=== PATIENT | male | born 1980 | race African-American/Black ===

== ENCOUNTER 2017-05-20 13:47 | Emergency (ER) | payer SELFPAY ==
[2017-05-20] MEDS ORDERED: levETIRAcetam 500 MG TAB ONE (14:12)
[2017-05-20] MEDS ORDERED: LORazepam 2 MG/ML VIAL ONE (15:17)
[2017-05-20] MEDS ORDERED: NA CHLORIDE 0.9% 1,000 ML ONE (15:30)
[2017-05-20 15:39] LABS: Absolute Lymphocytes (CBC) 2.1 K/uL (0.7-4.9); Absolute Monocytes 1.2 K/uL (0.1-1.3); Absolute Neutrophil 14.2 K/uL (1.8-8.0); Basophils % 0.5 % (0-1.3); Hematocrit 46.6 % (39.6-49.0); Lymphocytes % 12.2 % (15.3-44.8); MCH 30.9 pg (27.0-35.0); MCV 92.7 fL (80-100); MPV 10.9 fL (7.6-11.3); Monocytes % 7.1 % (3.3-12.3); RBC Red Blood Cell Count 5.03 M/uL (4.33-5.43)
--- NOTE | 2017-05-20 16:24 | RAD REPORT ---
EXAM DESCRIPTION: CT - Head Brain Wo Cont - 05/20/2017 4:17 pm CLINICAL HISTORY: Seizure COMPARISON: January 2017 TECHNIQUE: Computed axial tomography of the head was obtained. IV contrast was not requested. All CT scans are performed using dose optimization technique as appropriate and may include automated exposure control or mA/KV adjustment according to patient size. FINDINGS: An intracranial bleed is not seen . The ventricles are normal in caliber. No extra-axial fluid collection is noted. Fluid within the sinuses/ mastoids is not seen. IMPRESSION: No acute intracranial abnormality is seen. If patient's symptoms persist MRI of the bra in would be recommended.
[2017-05-20 16:59] LABS: Potassium 3.5 mEq/L (3.6-5.0)
[2017-05-20 17:28] LABS: Urine Blood 2+ (NEG); Urine Glucose NEGATIVE (NEG); Urine Protein NEGATIVE (NEG)
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
[2017-05-20 18:46] VITALS: TEMP 98.2
[2017-05-20 18:51] VITALS: BP 124/81; O2SAT 97
== END 2017-05-20 18:42 | disposition home or self-care (01) ==
LOC: ER 13:47
DX: G40.509 Epileptic seizures related to external causes, not intractable, without status epilepticus (principal); Z91.048 Other nonmedicinal substance allergy status
CPT/HCPCS: 36415; 70450; 80048; 81003; 82962; 85025; 96360; 96361; 96372; 99284; J7030

== ENCOUNTER 2017-11-23 11:58 | Emergency (ER) | payer SELFPAY ==
--- NOTE | 2017-11-23 14:08 | RAD REPORT ---
EXAM DESCRIPTION: RAD - Shoulder Left 2 View - 11/23/2017 1:50 pm CLINICAL HISTORY: Shoulder pain, decreased range of motion, no known precipitating injury COMPARISON: None. TECHNIQUE: Internal and external rotation views of the left shoulder were obtained. FINDINGS: There is no fracture or dislocation. AC joint is normal in appearance. No acute or suspici ous findings. IMPRESSION: Negative two-view left shoulder examination.
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
[2017-11-23 14:56] VITALS: TEMP 98.2
[2017-11-23 14:57] VITALS: BP 114/75; O2SAT 99
== END 2017-11-23 14:34 | disposition home or self-care (01) ==
LOC: ER 11:58
DX: S43.402A Unspecified sprain of left shoulder joint, initial encounter (principal); G40.909 Epilepsy, unspecified, not intractable, without status epilepticus; X58.XXXA Exposure to other specified factors, initial encounter; Z91.09 Other allergy status, other than to drugs and biological substances
CPT/HCPCS: 99283

== ENCOUNTER 2017-12-25 10:25 | Emergency (ER) | payer BC, SELFPAY ==
[2017-12-25] MEDS ORDERED: LORazepam 2 MG/ML VIAL ONE ×2 (10:48→10:59)
[2017-12-25 10:55] LABS: Absolute Lymphocytes (CBC) 1.9 K/uL (0.7-4.9); Absolute Monocytes 1.5 K/uL (0.1-1.3); Absolute Neutrophil 11.9 K/uL (1.8-8.0); Basophils % 0.5 % (0-1.3); Eosinophils % 0.2 % (0-4.4); Hematocrit 49.8 % (39.6-49.0); Lymphocytes % 12.6 % (15.3-44.8); MCH 31.3 pg (27.0-35.0); MCV 95.9 fL (80-100); MPV 10.5 fL (7.6-11.3); Monocytes % 9.8 % (3.3-12.3); RBC Red Blood Cell Count 5.19 M/uL (4.33-5.43)
[2017-12-25] MEDS ORDERED: levETIRAcetam 1,000 MG in NA CHLORIDE 0.9% 100 ML IV ONE (11:00)
[2017-12-25 11:11] LABS: Potassium 3.7 mmol/L (3.5-5.1)
[2017-12-25] MEDS ORDERED: FOSPHENYTOIN IVPB ONE (11:15)
[2017-12-25] MEDS ORDERED: NS IVPB ONE (11:15)
[2017-12-25 11:31] LABS: Barbiturates NEGATIVE (NEGATIVE); Benzodiazepines NEGATIVE (NEGATIVE); Cocaine NEGATIVE (NEGATIVE); METHAMPHETAM NEGATIVE (NEGATIVE); Methadone NEGATIVE (NEGATIVE); Opiates NEGATIVE (NEGATIVE); Phencyclidine NEGATIVE (NEGATIVE); THC Cannibis POSITIVE (NEGATIVE)
--- NOTE | 2017-12-25 11:34 | RAD REPORT ---
EXAM DESCRIPTION: CT - Head C Spine Mpr Wo Con - 12/25/2017 11:07 am CLINICAL HISTORY: Seizure with Head and neck injury status post fall. Head and neck pain COMPARISON: None. TECHNIQUE: Computed axial tomography of the head and cervical spine was obtained. Sagittal and coronal reconstruction was performed. All CT scans are performed using dose optimization technique as appropriate and may include automated exposure control or mA/KV adjustment according to patient size. FINDINGS: An intracranial bleed is not seen. The ventricles are normal in caliber. An extra-axial fl uid collection is not noted.Fluid within the visualized sinuses and mastoids is not seen A cervical fracture is not visualized. No dislocation is noted. IMPRESSION: No acute intracranial abnormality is seen. A cervical fracture is not visualized. If the patient continues to have symptoms to suggest intracra nial /spinal cord pathology then MRI would be recommended
[2017-12-25] MEDS ORDERED: NA CHLORIDE 0.9% 1,000 ML ONE (11:35)
[2017-12-25 12:20] LABS: Urine Blood 2+ (NEG); Urine Glucose TRACE (NEG); Urine Protein 1+ (NEG); Urine Specific Gravity 1.025 (1.005-1.030)
[2017-12-25] MEDS ORDERED: IBUPROFEN 400 MG TAB ONE (13:41)
[2017-12-25 13:57] LABS: Potassium 3.9 mmol/L (3.5-5.1)
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
[2017-12-25 15:47] VITALS: TEMP 98.5
[2017-12-25 15:53] VITALS: BP 101/54; O2SAT 100
== END 2017-12-25 14:54 | disposition home or self-care (01) ==
LOC: ER 10:25
DX: G40.802 Other epilepsy, not intractable, without status epilepticus (principal); Z91.048 Other nonmedicinal substance allergy status
CPT/HCPCS: 36415; 70450; 72125; 80048; 80307; 81003; 85025; 96361; 96374; 96375; 99284; J1953; J7030; Q2009

== ENCOUNTER 2018-03-03 12:52 | Emergency (ER) | payer BC ==
--- OUTSIDE RECORDS SUMMARY | 2018-03-03 12:54 | XMS REPORT | Summary of Care ---
:1980 Author Encounter [facility] Waldemar(YUMIKO) [id number] Date(s): 07/27/14 - 07/27/14 [facility] [address] [place] [address] Discharge Disposition: Home Physician Attending: Monica Ortiz MD Physician Admitting: Monica Ortiz MD Physician_Referring: Monica Ortiz MD Vital Signs Most recent to oldest 1 2 3 [Reference Range]: Height 180.34 cm (07/15/14 1:40 PM) Blood Pressure [90-140/60-90 120/57 mmHg 130/65 mmHg 147/66 mmHg mmHg] (07/27/14 1:35 PM) (07/27/14 1:15 PM) *HI* (07/27/14 1:00 PM) Respiratory Rate [14-20 BRMIN] 15 BRMIN 13 BRMIN 13 BRMIN (07/27/14 1:35 PM) *LOW* *LOW* (07/27/14 1:15 PM) (07/27/14 1:00 PM) Peripheral Pulse Rate [60-100 77 bpm 58 bpm bpm] (07/27/14 1:35 PM) *LOW* (07/27/14 7:13 AM) Weight 81.818 kg (07/15/14 1:40 PM) Body Mass Index 25.16 m2 (07/15/14 1:40 PM) Problem List Condition Effective Dates Status Health Status Informant Retinal detachment(Confirmed) Active Allergies, Adverse Reactions, Alerts Substance Reaction Severity Status Food Shellfish Active Medications flumazenil 0.2 mg, 2 mL, Route: IVP, Drug form: INJ, PRN, Dosing Weight 81.818, kg, PRN Benzodiazepine Reversal, Initial dose, Start date: 07/27/14 12:30:00, Stop date : 07/28/14 0:00:00 Notes: (Same as: Romazicon) Start Date: 07/27/14 Stop Date: 07/28/14 Status: Completedhydromorphone 0.5 mg, 0.25 mL, Route: IVP, Drug form: INJ, Q5Min, Dosing Weight 81.818, kg, PRN Pain Score 7-10, Start date: 07/27/14 12:30:00, Duration: 4 doses or times, Stop date: 07/28/14 0:00:00 Notes: Same as: Dilaudid Start Date: 07/27/14 Stop Date: 07/28/14 Status: Completedmeperidine 12.5 mg, 0.5 mL, Route: IVP, Drug form: INJ, Q30Min, Dosing Weight 81.818, kg, PRN Other -See Comment, For shivering, Start date: 07/27/14 12:30:00, Duration: 2 doses or times, Stop date: 07/28/14 0:00:00 Notes: (Same as: Demerol) "Use Precaution in Elderly, Seizure disorders, and Renal impairment" Start Date: 07/27/14 Stop Date: 07/28/14 Status: Completednaloxone 0.04 mg, 0.1 mL, Route: IVP, Drug form: INJ, Q2MIN, Dosing Weight 81.818, kg, PRN Narcotic Reversal,Start date: 07/27/14 12:30:00, Duration: 8 doses or times , Stop date: 07/28/14 0:00:00 Notes: Same as Narcan Start Date: 07/27/14 Stop Date: 07/28/14 Status: Completedondansetron 4 mg, 2 mL, Route: IVP, Drug form: INJ, ONCE, Dosing Weight 81.818, kg, PRN Nausea & Vomiting, Start date: 07/27/14 12:30:00 Notes: (Same as: Zofran) MEDICATION WASTE Product Size: 4 mgProduct Wasted: _0__ mg Start Date: 07/27/14 Stop Date: 07/28/14 Status: DiscontinuedoxyCODONE 5 mg/5 mL oral solution 5 mg, 5 mL, Route: NG, Drug form: LIQ, Q4H, Dosing Weight 81.818, kg, PRN Pain Score 4-6, Start date: 07/27/14 12:30:00, Stop date: 07/28/14 0:00:00 Notes: (Same as: 'Roxicodone) Start Date: 07/27/14 Stop Date: 07/28/14 Status: CompletedoxyCODONE 5 mg/5 mL oral solution 10 mg, 10 mL, Route: NG, Drug form: LIQ, Q4H, Dosing Weight 81.818, kg, PRN Pain Score 7-10, Start date: 07/27/14 12:30:00, Stop date: 07/28/14 0:00:00 Notes: (Same as: 'Roxicodone) Start Date: 07/27/14 Stop Date: 07/28/14 Status: Completedphenylephrine ophthalmic 2.5% solution 1 drp, Route: LEFT EYE, ONCALL, Drug form: SOLN, Start date: 07/27/14 8:00:00, Duration: 1 day, Stopdate: 07/28/14 7:59:00 Start Date: 07/27/14 Stop Date: 07/27/14 Status: Completedpromethazine 6.25 mg, 0.25 mL, Route: IVPB, Drug form: INJ, ONCE, Dosing Weight 81.818, kg, PRN Nausea & Vomiting, Start date: 07/27/14 12:30:00 Notes: Do not give IV push. (Same as: Phenergan) Start Date: 07/27/14 Stop Date: 07/28/14 Status: Discontinuedtropicamide ophthalmic 1 drp, Route: LEFT EYE, ONCALL, Drug form: SOLN, Start date: 07/27/14 8:00:00, Duration: 1 day, Stopdate: 07/28/14 7:59:00 Notes: (Same As: Mydriacyl, Opticyl, Tropicacyl) Start Date: 07/27/14 Stop Date: 07/27/14 Status: Completed Results No data available for this section Immunizations No data available for this section Procedures Procedure Date Related Diagnosis Body Site Eye operation Social History Social History Type Response Smoking Status Former smoker; Type: Cigarettes; Exposure to Tobacco Smoke None ; Cigarette Smoking Last 365 Days No; Reg Smoking Cessation Counseling No1 1quit in 2014 Assessment and Plan Extracted from: Title: Vitreoretinal Surgery operative report Author: Monica Ortiz MD Date: 07/27/14 Patient: Corinne Rees Preoperative diagnosis: 1. retinal detachment with proliferative vitreoretinopathy, left eye Postoperative diagnosis: 1. retinal detachment with proliferative vitreoretinopathy, left eye Procedure: 1. 25 gauge pars plana vitrectomy, silicone oil removal, membrane peel, relaxing retinectomy, endolaser, PFO, air-fluid exchange, silicone oil, surgical peripheral iridotomy, left eye Anesthesia: general Complications: none Blood loss: minimal Surgeon: Monica Ortiz MD Director Of Social Media Marketing: Tri Murillo MD Indications and history: This is a patient who presented s/p open globe repair elsewhere. He underwent CE/IOL and PPV with SO combined. In the post op period the retina was found to be detached and in PVR. Risks, benefits, alte rnatives to surgery were discussed. Very poor visual prognosis was reviewed with the patient. In the pre operative area, the left eye was marked as the correct surgical eye and confirmed with the patient. Informed consent was obtained. Procedure details: the patient was brought to the operating room and placed in supine position. Appropriate cardiopulmonary monitoring was establishd by anesthesia and the patient was sedated and intubated. The eye was prepped and draped in the usual sterile fashion for ophthalmic surgery. A lid speculum was used. A 25g system was used. The inferotemporal trochar was placed 3.5 mm posterior to the limbus a nd the infusion port visualized in the vitreous cavity prior to turning it on. Superotemporal and superonasal trochars were similarly placed. A viscous fluid extractor was used to remove the silicone oi l under direct visualization. The cutter was used to open the posterior capsule. A core vitrectomy was then performed and residual hemorrage and fibrinous membranes were trimmed to the periphery. A max- flight mechanic forcep was used to peel membranes from the nerve to relax the traction. Endocautery was then used to farhan the retina and cauterize vessels, and the cutter was used to make a retinectomy from 4 o'cl ock to 11:30. PFO was then used to flatten the retina. An air-fluid exchange was done using a soft tip cannula. Endolaser was applied along the edge of the retinectomy with 3 rows of barricade and surro unding the horns anteriorly. The cutter was used to make a peripheral iridotomy inferiorly. The eye was filled with 1000cs silicone oil to the level of the posterior capsule. The sclerotomy sites were s utured with 7-0 vicryl and found to be watertight. The conjunctiva was closed with 6-0 plain gut. Subconjunctival ancef and decadron were given. The lid speculum was removed. The eye was patched and catracho elded. The patient was extubated by the anesthesia team and transferred to PACU in stable condition. I performed all critical portion(s) of the case.
--- OUTSIDE RECORDS SUMMARY | 2018-03-03 12:54 | XMS REPORT | Continuity of Care Document ---
:1980 Author Organization Interface Problems Problem Status Onset Classification Date Comments Source Date Reported COMPLEX Active [facility] RETINAL [facility] Retinal Active Problem 07/30/2014 [facility] detachment [facility] DETACHMNT W Active [facility] DEFECT NOS [facility] Medications Medication Details Route Status Patient Ordering Order Source Instructions Provider Date Naloxone 0.04 mg, 0.1 mL, No Longer [facility] Route: IVP, Drug Active 2014 Medical form: INJ, Center Q2MIN, Dosing Weight 81.818, kg, PRN Narcotic Reversal, Start date: 07/27/14 12:30:00, Duration: 8 doses or times, Stop date: 07/28/14 0:00:00Notes: Same as Narcan Hydromorphone 0.5 mg, 0.25 mL, No Longer 07/27[facility] Route: IVP, Drug Active 2014 Medical form: INJ, Center Q5Min, Dosing Weight 81.818, kg, PRN Pain Score 7-10, Start date: 07/27/14 12:30:00, Duration: 4 doses or times, Stop date: 07/28/14 0:00:00Notes: Same as: Dilaudid Ondansetron 4 mg, 2 mL, No Longer 07/27[facility] Route: IVP, Drug Active 2014 Medical form: INJ, ONCE, Center Dosing Weight 81.818, kg, PRN Nausea & Vomiting, Start date: 07/27/14 12:30:00Notes: (Same as: Zofran) MEDICATION WASTE Product Size: 4 mg Product Wasted: _0__ mg Promethazine 6.25 mg, 0.25 No Longer 07/27[facility] mL, Route: IVPB, Active 2014 Medical Drug form: INJ, Center ONCE, Dosing Weight 81.818, kg, PRN Nausea & Vomiting, Start date: 07/27/14 12:30:00Notes: Do not give IV push. (Same as: Phenergan) Meperidine 12.5 mg, 0.5 mL, No Longer [place] Route: IVP, Drug Active 2014 Medical form: INJ, Center Q30Min, Dosing Weight 81.818, kg, PRN Other -See Comment, For shivering, Start date: 07/27/14 12:30:00, Duration: 2 doses or times, Stop date: 07/28/14 0:00:00Notes: (Same as: Demerol) "Use Precaution in Elderly, Seizure disorders, and Renal impairment" Flumazenil 0.2 mg, 2 mL, No Longer [facility] Route: IVP, Drug Active 2014 Medical form: INJ, PRN, Center Dosing Weight 81.818, kg, PRN Benzodiazepine Reversal, Initial dose, Start date: 07/27/14 12:30:00, Stop date: 07/28/14 0:00:00Notes: (Same as: Romazicon) Oxycodone 5 mg, 5 mL, No Longer [facility] Hydrochloride 1 Route: NG, Drug Active 2014 Medical MG/ML Oral form: LIQ, Q4H, Center Solution Dosing Weight 81.818, kg, PRN Pain Score 4-6, Start date: 07/27/14 12:30:00, Stop date: 07/28/14 0:00:00Notes: (Same as: 'Roxicodone) tropicamide 1 drp, Route: Inactive [facility] ophthalmic LEFT EYE, 2014 Medical ONCALL, Drug Center form: SOLN, Start date: 07/27/14 8:00:00, Duration: 1 day, Stop date: 07/28/14 7:59:00Notes: (Same As: Mydriacyl, Opticyl, Tropicacyl) phenylephrine 1 drp, Route: Inactive [facility] ophthalmic 2.5% [facility] EYE, [facility] [place] form: SOLN, Start date: 07/27/14 8:00:00, Duration: 1 day, Stop date: 07/28/14 7:59:00 Allergies, Adverse Reactions, Alerts Substance Category Reaction Severity Reaction Status Date Comments Source type Reported Food Assertion Drug Active [facility] Shellfish allergy [facility] Immunizations Immunization Date Given Site Status Last Updated Comments Source Results Order Results Value Reference Date Interpretation Comments Source Name Range Vital Signs Vital Sign Value Date Comments Source Systolic (mm Hg) 120 07/27/2014 [facility] Diastolic (mm Hg) 57 07/27/2014 [facility] Heart Rate 77 07/27/2014 [facility] Respitory Rate 15 07/27/2014 [facility] Respitory Rate 13 07/27/2014 [facility] Systolic (mm Hg) 130 07/27/2014 [facility] Diastolic (mm Hg) 65 07/27/2014 [facility] Systolic (mm Hg) 147 07/27/2014 [facility] Diastolic (mm Hg) 66 07/27/2014 [facility] Respitory Rate 13 07/27/2014 [facility] Heart Rate 58 07/27/2014 [facility] Weight 81.818 07/15/2014 [facility] BMI Calculated 25.16 07/15/2014 [facility] Height 180.34 cm 07/15/2014 [facility] Encounters Location Location Encounter Encounter Reason Attending ADM DC Status Source Details Type Number For Provider Date Date Visit [facility] [id number] Monica 07/27 07/28 [facility] [place] [facility] [place] /2014 [facility] [id number] [place] 02/14 [facility] [place] [facility] [id number] [place] 02/18 [facility] [place] [facility] [id number] [place] 04/01 [place] [address] [place] Procedures Procedure Code Date Perfomer Comments Source Eye operation [id number] [facility]
[2018-03-03] MEDS ORDERED: LORazepam 2 MG/ML VIAL ONE ×3 (12:58→14:36)
[2018-03-03 13:11] LABS: Absolute Lymphocytes (CBC) 3.2 K/uL (0.7-4.9); Absolute Neutrophil 9.8 K/uL (1.8-8.0); Basophils % 0.4 % (0-1.3); Eosinophils % 0.8 % (0-4.4); Hematocrit 48.6 % (39.6-49.0); Lymphocytes % 21.3 % (15.3-44.8); MPV 10.5 fL (7.6-11.3)
[2018-03-03] MEDS ORDERED: NA CHLORIDE 0.9% 2,000 ML ONE (13:17)
[2018-03-03 13:31] LABS: Albumin 4.7 g/dL (3.4-5.0); Bilirubin Total 0.4 mg/dL (0.2-1.0); Potassium 3.4 mmol/L (3.5-5.1); Protein, Total 8.1 g/dL (6.4-8.2)
[2018-03-03] MEDS ORDERED: levETIRAcetam 1,000 MG in NA CHLORIDE 0.9% 100 ML IV ONE (14:45)
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
[2018-03-03 16:45] VITALS: TEMP 99.5
[2018-03-03 16:46] VITALS: O2SAT 100
[2018-03-03 19:04] VITALS: BP 121/71
== END 2018-03-03 18:45 | disposition short-term general hospital (02) ==
LOC: ER 12:52
DX: G40.802 Other epilepsy, not intractable, without status epilepticus (principal); Z91.048 Other nonmedicinal substance allergy status
CPT/HCPCS: 36415; 80053; 85025; 96365; 96372; 96375; 99285; J1953; J7030

== ENCOUNTER 2018-11-16 20:17 | Emergency (ER) | payer BC ==
[2018-11-16] MEDS ORDERED: NA CHLORIDE 0.9% 2,000 ML ONE (20:56)
[2018-11-16 22:06] LABS: Absolute Lymphocytes (CBC) 3.7 K/uL (0.7-4.9); Basophils % 0.7 % (0-1.3); Hematocrit 43.8 % (39.6-49.0); Lymphocytes % 38.8 % (15.3-44.8); RBC Red Blood Cell Count 4.74 M/uL (4.33-5.43)
[2018-11-16 22:10] LABS: Protime INR 0.93
[2018-11-16] MEDS ORDERED: IBUPROFEN 400 MG TAB ONE (22:29)
[2018-11-16 22:32] LABS: Urine Blood NEGATIVE (NEG); Urine Glucose NEGATIVE (NEG); Urine Protein 2+ (NEG); Urine Specific Gravity 1.025 (1.005-1.030); Urine pH 6.5 (5.0-7.0)
[2018-11-16 22:37] LABS: ALT/SGPT 33 U/L (12-78); AST/SGOT 29 U/L (15-37); Albumin 3.9 g/dL (3.4-5.0); Alkaline Phosphatase 54 U/L (45-117); BUN Blood Urea Nitrogen 16 mg/dL (7-18); Bicarbonate 16 mmol/L (21-32); Bilirubin Direct < 0.1 mg/dL (0-0.2); Bilirubin Total 0.4 mg/dL (0.2-1.0); Glucose Level 152 mg/dL (74-106); Potassium 4.6 mmol/L (3.5-5.1); Protein, Total 6.4 g/dL (6.4-8.2); Sodium Level 139 mmol/L (136-145)
[2018-11-16 22:40] LABS: Barbiturates NEGATIVE (NEGATIVE); Benzodiazepines NEGATIVE (NEGATIVE); Cocaine NEGATIVE (NEGATIVE); METHAMPHETAM NEGATIVE (NEGATIVE); Methadone NEGATIVE (NEGATIVE); Opiates NEGATIVE (NEGATIVE); Phencyclidine NEGATIVE (NEGATIVE); THC Cannibis NEGATIVE (NEGATIVE)
[2018-11-16 23:47] LABS: Potassium 3.8 mmol/L (3.5-5.1)
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
[2018-11-17 02:23] VITALS: BP 117/73; O2SAT 96
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
--- NOTE | 2018-11-17 09:42 | EKG ---
Test Date: 2018-11-17 Test Time: 00:24:27 Account Information Clerk: YUNG MEASUREMENT RESULTS: Intervals: Rate: 63 AL: 136 QRSD: 96 QT: 426 QTc: 435 [place]: P: 67 AL: 136 QRS: 81 T: 45 INTERPRETIVE STATEMENTS: Normal sinus rhythm normal ECG Compared to ECG 01/15/2017 00:04:34 no significant change from previous ECG Electronically Signed On 11-17-18 09:42:05 CDT by Leobardo Ureña
--- NOTE | 2018-11-18 13:48 | RAD REPORT ---
EXAM DESCRIPTION: CT - CTHCSPWOC - 11/16/2018 9:48 pm CLINICAL HISTORY: The patient is 38 years old and is Male; PAIN TECHNIQUE: Axial computed tomography images of the head/brain and cervical spine without intravenous contrast. Sagittal and coronal reformatted images were created and reviewed. This CT exam was pe rformed using one or more of the following dose reduction techniques: automated exposure control, a djustment of the mA and/or kV according to patient size, and/or use of iterative reconstruction techn ique. COMPARISON: None. FINDINGS: BRAIN: Unremarkable. No hemorrhage. No significant white matter disease. No edema . VENTRICLES: Unremarkable. No ventriculomegaly. SKULL: Partial visualization of prior left mandible plate and screw fixation. No acute fracture. SINUSES: Paranasal sinuses are clear. MASTOID AIR CELLS: Mastoid air cells are well-pneumatized. ORBITS: Prior left globe postsurgical changes. No acute abnormality. VERTEBRAE: Reversal of cervical lordosis centered at C4-5. No acute fracture. DISCS/SPINAL CANAL/NEURAL FORAMINA: No acute findings. No spinal canal stenosis. SOFT TISSUES: Unremarkable. ESOPHAGUS/TRACHEA: 2.0 x 1.5 cm lucency to the right of the proximal esophagus/trachea, likely div erticula. LUNG APICES: Apical lung zones are clear. IMPRESSION: 1. No acute intracranial abnormality. 2. No acute cervical spine fracture or subluxation. 3. 2.0 x 1.5 cm lucency to the right of the proximal esophagus/trachea, likely diverticula. Electronically signed by: Judd Laws DO 11/16/2018 9:43 PM CDT Due to temporary technical issues with the PACS/Fluency reporting system, reports are being signed by the in house radiologist as a courtesy to ensure prompt reporting. The interpreting radiologist is f ully responsible for the content of the report.
== END 2018-11-17 00:45 | disposition home or self-care (01) ==
LOC: ER 20:17
DX: E86.0 Dehydration (principal); G40.909 Epilepsy, unspecified, not intractable, without status epilepticus; F17.210 Nicotine dependence, cigarettes, uncomplicated; Z91.048 Other nonmedicinal substance allergy status
CPT/HCPCS: 96361; 93005; 85025; 80048 ×2; 36415; 80320; 80329 ×2; 85610; 80076; 80307 ×8; 85730; 81003; 70450; 72125; 71045; 96360; 99284; J7030

== ENCOUNTER 2018-12-31 15:37 | Emergency (ER) | payer BC ==
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
[2018-12-31 16:04] LABS: Absolute Lymphocytes (CBC) 1.6 K/uL (0.7-4.9); Basophils % 0.7 % (0-1.3); Hematocrit 40.4 % (39.6-49.0); Lymphocytes % 18.4 % (15.3-44.8); MPV 10.6 fL (7.6-11.3); RBC Red Blood Cell Count 4.47 M/uL (4.33-5.43)
[2018-12-31 16:09] LABS: Protime INR 0.93
[2018-12-31 16:23] LABS: ALT/SGPT 66 U/L (12-78); AST/SGOT 35 U/L (15-37); Albumin 4.4 g/dL (3.4-5.0); Alkaline Phosphatase 59 U/L (45-117); BUN Blood Urea Nitrogen 12 mg/dL (7-18); Bicarbonate 27 mmol/L (21-32); Bilirubin Direct 0.1 mg/dL (0-0.2); Bilirubin Total 0.4 mg/dL (0.2-1.0); Glucose Level 125 mg/dL (74-106); Potassium 4.3 mmol/L (3.5-5.1); Protein, Total 7.4 g/dL (6.4-8.2); Sodium Level 138 mmol/L (136-145)
--- NOTE | 2018-12-31 16:40 | RAD REPORT ---
EXAM DESCRIPTION: CT - Head Brain Wo Cont - 12/31/2018 4:15 pm CLINICAL HISTORY: Seizure COMPARISON: November 2018 TECHNIQUE: Computed axial tomography of the head was obtained. IV contrast was not requested. All CT scans are performed using dose optimization technique as appropriate and may include automated exposure control or mA/KV adjustment according to patient size. FINDINGS: An intracranial bleed is not seen . The ventricles are normal in caliber. No extra-axial fluid collection is noted. A round metallic foreign body lies adjacent to left mandibl e Fluid within the sinuses/ mastoids is not seen. IMPRESSION: No acute intracranial abnormality is seen. If patient's symptoms persist MRI of the bra in would be recommended.
[2018-12-31] MEDS ORDERED: LORazepam 2 MG/ML VIAL ONE (16:49)
[2018-12-31 16:54] LABS: Urine Blood NEGATIVE (NEG); Urine Glucose NEGATIVE (NEG); Urine Protein NEGATIVE (NEG); Urine Specific Gravity 1.015 (1.005-1.030)
[2018-12-31] MEDS ORDERED: levETIRAcetam 1,000 MG in NA CHLORIDE 0.9% 100 ML IV ONE (17:00)
[2018-12-31 17:06] LABS: Barbiturates NEGATIVE (NEGATIVE); Benzodiazepines NEGATIVE (NEGATIVE); Cocaine NEGATIVE (NEGATIVE); METHAMPHETAM NEGATIVE (NEGATIVE); Methadone NEGATIVE (NEGATIVE); Opiates NEGATIVE (NEGATIVE); Phencyclidine NEGATIVE (NEGATIVE); THC Cannibis NEGATIVE (NEGATIVE)
--- NOTE | 2018-12-31 18:34 | EKG ---
Test Date: 2018-12-31 Test Time: 15:45:42 Internet Sales Director: MORIS MEASUREMENT RESULTS: Intervals: Rate: 100 TN: 120 QRSD: 84 QT: 338 QTc: 436 [place]: P: 69 TN: 120 QRS: 52 T: 10 INTERPRETIVE STATEMENTS: Normal sinus rhythm Normal ECG Compared to ECG 11/17/2018 00:24:27 No significant changes Electronically Signed On 12-31-18 18:32:54 HEAD HOST/HOSTESS by Anuj Lawrence
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
[2018-12-31 23:42] VITALS: BP 120/78; TEMP 98; O2SAT 100
== END 2018-12-31 21:08 | disposition home or self-care (01) ==
LOC: ER 15:37
DX: G40.802 Other epilepsy, not intractable, without status epilepticus (principal); Z72.0 Tobacco use; Z91.048 Other nonmedicinal substance allergy status
CPT/HCPCS: 96365; 93005; 85025; 80048; 36415; 80320; 80329 ×2; 85610; 82947; 80076; 80307 ×8; 85730; 81003; 70450; 96375; 99284; 96366; J1953

== ENCOUNTER 2019-01-26 18:10 | Emergency (ER) | payer BC ==
--- OUTSIDE RECORDS SUMMARY | 2019-01-26 18:12 | XMS REPORT ---
:1980 Author Organization [facility] Address [address] [place] [address] Care Team Providers Name Role Phone LIVIA [...] Comments WHITE BLOOD CELL COUNT (BEAKER) (test msgw=761) 15.9 K/ L 3.5-10.5 RED BLOOD CELL COUNT (BEAKER) (test fspm=819) 4.25 M/ L 4.63-6.08 HEMOGLOBIN (BEAKER) (test wvru=084) 13.3 GM/DL 13.7-17.5 HEMATOCRIT (BEAKER) (test vklm=889) 39.1 % 40.1-51.0 MEAN CORPUSCULAR VOLUME (BEAKER) (test lnqu=901) 92.0 fL 79.0-92.2 MEAN CORPUSCULAR HEMOGLOBIN (BEAKER) (test oxqm=116) 31.3 pg 25.7-32.2 MEAN CORPUSCULAR HEMOGLOBIN CONC (BEAKER) (test oozu=646) 34.0 GM/DL 32.3- 36.5 RED CELL DISTRIBUTION WIDTH (BEAKER) (test jujg=266) 14.1 % 11.6-14.4 PLATELET COUNT (BEAKER) (test wbzd=892) 176 K/CU MM 150-450 MEAN PLATELET VOLUME (BEAKER) (test jotu=664) 11.7 fL 9.4-12.4 NUCLEATED RED BLOOD CELLS (BEAKER) (test fkun=222) 0 /100 WBC 0-0 (CELLAVISION MANUAL DIFF)2018-03-04 12:29:00 Test Item Value Reference Range Comments NEUTROPHILS - REL (CELLAVISION)(BEAKER) (test 78 % vgkt=4264) LYMPHOCYTES - REL (CELLAVISION)(BEAKER) (test 9 % tslb=8987) MONOCYTES - REL (CELLAVISION)(BEAKER) (test 12 % jvne=5241) BANDS - REL (CELLAVISION)(BEAKER) (test 1 % 0-10 kkll=1106) NEUTROPHILS - ABS (CELLAVISION)(BEAKER) (test 12.40 K/ul 1.78-5.38 qjgz=4634) LYMPHOCYTES - ABS (CELLAVISION)(BEAKER) (test 1.43 K/ul 1.32-3.57 azrt=0949) MONOCYTES - ABS (CELLAVISION)(BEAKER) (test 1.91 K/uL 0.30-0.82 uwot=3568) BANDS - ABS (CELLAVISION)(BEAKER) (test 0.16 K/uL 0.00-0.80 xdxh=3716) TOTAL COUNTED (BEAKER) (test exyk=4267) 100 WBC MORPHOLOGY (BEAKER) (test bamr=456) Normal PLT MORPHOLOGY (BEAKER) (test udqm=892) Normal POLYCHROMATOPHILLIC RBCS(BEAKER) (test lnyh=552) 1+ few ANISOCYTOSIS (BEAKER) (test syhr=535) 1+ few ARTIFACT (CELLAVISION)(BEAKER) (test xvht=5950) Present PLATELET CONCENTRATION (CELLAVISION)(BEAKER) Adequate (test xykw=8455) Received comment: User comments: Slide comments:CREATININE, RANDOM [id number] 11:40:00 Test Item Value Reference Range Comments CREATININE URINE (BEAKER) (test bsll=128) 81.7 mg/dL Reference Range: No NormalsSODIUM, RANDOM [id number] 11:40:00 Test Item Value Reference Range Comments SODIUM URINE (BEAKER) (test jark=485) 39 meq/L Reference Range: No NormalsCOMPREHENSIVE METABOLIC [id number] 07:31:00 Test Item Value Reference Range Comments TOTAL PROTEIN (BEAKER) 6.0 gm/dL 6.0-8.3 (test evuw=243) ALBUMIN (BEAKER) (test 3.8 g/dL 3.5-5.0 utdp=1517) ALKALINE PHOSPHATASE 51 U/L 40-150 (BEAKER) (test pswm=962) BILIRUBIN TOTAL (BEAKER) 0.7 mg/dL 0.2-1.2 (test qzjt=422) SODIUM (BEAKER) (test 138 meq/L 136-145 kkti=503) POTASSIUM (BEAKER) (test 3.8 meq/L 3.5-5.1 nckc=508) CHLORIDE (BEAKER) (test 108 meq/L 98-107 nurx=224) CO2 (BEAKER) (test 20 meq/L 22-29 emns=010) BLOOD UREA NITROGEN 14 mg/dL 7-21 (BEAKER) (test ygvx=595) CREATININE (BEAKER) (test 2.10 mg/dL 0.57-1.25 qkzd=516) GLUCOSE RANDOM (BEAKER) 125 mg/dL 70-105 (test iwhv=979) CALCIUM (BEAKER) (test 8.3 mg/dL 8.4-10.2 ckra=581) AST (SGOT) (BEAKER) (test 30 U/L 5-34 ahkn=216) ALT (SGPT) (BEAKER) (test 15 U/L 6-55 xafi=243) EGFR (BEAKER) (test 43 mL/min/1.73 sq m ESTIMATED GFR IS NOT ulus=2798) ACCURATE CREATININE CLEARANCE IN PREDICTING GLOMERULAR FILTRATION RATE. ESTIMATED GFR IS NOT APPLICABLE FOR DIALYSIS PATIENTS. [id number] 06:17:00 Test Item Value Reference Range Comments SODIUM (BEAKER) (test llsx=229) 139 meq/L 136-145 POTASSIUM (BEAKER) (test vaft=927) 3.8 meq/L 3.5-5.1 CHLORIDE (BEAKER) (test azbj=529) 109 meq/L 98-107 CO2 (BEAKER) (test ztyf=869) 22 meq/L 22-29 URINALYSIS W/ [id number] 01:17:00 Test Item Value Reference Range Comments COLOR (BEAKER) (test qoau=714) Light Yellow CLARITY (BEAKER) (test kuuu=745) Clear SPECIFIC GRAVITY UA (BEAKER) (test wzvb=606) 1.007 1.001-1.035 PH UA (BEAKER) (test eeka=323) 5.0 5.0-8.0 PROTEIN UA (BEAKER) (test xffq=447) 20 mg/dL Negative GLUCOSE UA (BEAKER) (test szwu=801) Negative Negative KETONES UA (BEAKER) (test qihc=836) Negative Negative BILIRUBIN UA (BEAKER) (test qwwd=112) Negative Negative BLOOD UA (BEAKER) (test uutp=456) Negative Negative NITRITE UA (BEAKER) (test ysyx=240) Negative Negative LEUKOCYTE ESTERASE UA (BEAKER) (test jixo=902) Negative Negative UROBILINOGEN UA (BEAKER) (test qkgc=650) 0.2 mg/dL 0.2-1.0 RBC UA (BEAKER) (test egiz=880) 0 /HPF WBC UA (BEAKER) (test prlh=409) 1 /HPF MUCUS (BEAKER) (test atbr=1140) Rare CALCIUM OXALATE CRYSTALS (BEAKER) (test Occasional muhg=354) AMORPHOUS CRYSTALS (BEAKER) (test gkvf=2058) Rare SOURCE(BEAKER) (test jttf=5227) Urine, Voided PROTHROMBIN [id number] 23:08:00 Test Item Value Reference Range Comments PROTIME (BEAKER) (test dsee=093) 13.1 seconds 11.7-14.7 INR (BEAKER) (test nfkj=324) 1.0 <=5.9 RECOMMENDED COUMADIN/WARFARIN INR THERAPY RANGESSTANDARD DOSE: 2.0 - 3.0 Includes: PROPHYLAXIS forvenous thrombosis, systemic embolization; TREATMENT for venous thrombosis and/or pulmonary embolus.HIGH RISK: Target INR is 2.5-3.5 for patients with mechanical heart valves.RAD, CHEST, 1 VIEW, NON [id number] 21:49:00Post-intubationReason for exam:->coughShould this be performed [...] Orellana MDReportVerified Date/Time: 03/03/2018 21:49:20 Reading Location: [address] Reading Room
[2019-01-26] MEDS ORDERED: HYDROCODONE/APAP 10/325 TAB ONE (18:55)
--- NOTE | 2019-01-26 19:39 | RAD REPORT ---
EXAM DESCRIPTION: RAD - Foot Left 3 View - 01/26/2019 6:54 pm CLINICAL HISTORY: Left Foot pain FINDINGS: No fracture or dislocation is seen. Pes planus
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
[2019-01-27 01:55] VITALS: TEMP 97.7
[2019-01-27 01:57] VITALS: BP 122/84; O2SAT 99
== END 2019-01-26 20:37 | disposition home or self-care (01) ==
LOC: ER 18:10
DX: S93.602A Unspecified sprain of left foot, initial encounter (principal); S90.32XA Contusion of left foot, initial encounter; F17.210 Nicotine dependence, cigarettes, uncomplicated; W22.8XXA Striking against or struck by other objects, initial encounter; Y93.89 Activity, other specified; Y92.009 Unspecified place in unspecified non-institutional (private) residence as the place of occurrence of the external cause; Z91.048 Other nonmedicinal substance allergy status
CPT/HCPCS: 99283

== ENCOUNTER 2019-02-03 21:15 | Observation (INO) | payer BC ==
--- OUTSIDE RECORDS SUMMARY | 2019-02-03 21:17 | XMS REPORT ---
:1980 [facility] Address [address] [place] [address] Care Team Providers Name Role Phone LIVIA [...] Comments WHITE BLOOD CELL COUNT (BEAKER) (test ycjq=207) 15.9 K/ L 3.5-10.5 RED BLOOD CELL COUNT (BEAKER) (test fctv=153) 4.25 M/ L 4.63-6.08 HEMOGLOBIN (BEAKER) (test zhje=735) 13.3 GM/DL 13.7-17.5 HEMATOCRIT (BEAKER) (test ssvl=310) 39.1 % 40.1-51.0 MEAN CORPUSCULAR VOLUME (BEAKER) (test canc=420) 92.0 fL 79.0-92.2 MEAN CORPUSCULAR HEMOGLOBIN (BEAKER) (test clwm=290) 31.3 pg 25.7-32.2 MEAN CORPUSCULAR HEMOGLOBIN CONC (BEAKER) (test gseo=656) 34.0 GM/DL 32.3- 36.5 RED CELL DISTRIBUTION WIDTH (BEAKER) (test rkma=613) 14.1 % 11.6-14.4 PLATELET COUNT (BEAKER) (test vzpa=108) 176 K/CU MM 150-450 MEAN PLATELET VOLUME (BEAKER) (test dmlj=004) 11.7 fL 9.4-12.4 NUCLEATED RED BLOOD CELLS (BEAKER) (test ulmy=801) 0 /100 WBC 0-0 (CELLAVISION MANUAL DIFF)2018-03-04 12:29:00 Test Item Value Reference Range Comments NEUTROPHILS - REL (CELLAVISION)(BEAKER) (test 78 % afax=1224) LYMPHOCYTES - REL (CELLAVISION)(BEAKER) (test 9 % ayjv=9488) MONOCYTES - REL (CELLAVISION)(BEAKER) (test 12 % itah=4308) BANDS - REL (CELLAVISION)(BEAKER) (test 1 % 0-10 uteh=4399) NEUTROPHILS - ABS (CELLAVISION)(BEAKER) (test 12.40 K/ul 1.78-5.38 haqf=1882) LYMPHOCYTES - ABS (CELLAVISION)(BEAKER) (test 1.43 K/ul 1.32-3.57 xuou=1299) MONOCYTES - ABS (CELLAVISION)(BEAKER) (test 1.91 K/uL 0.30-0.82 tnvi=6882) BANDS - ABS (CELLAVISION)(BEAKER) (test 0.16 K/uL 0.00-0.80 ujfe=9499) TOTAL COUNTED (BEAKER) (test gxoo=7064) 100 WBC MORPHOLOGY (BEAKER) (test weoz=682) Normal PLT MORPHOLOGY (BEAKER) (test izbp=714) Normal POLYCHROMATOPHILLIC RBCS(BEAKER) (test bwjr=145) 1+ few ANISOCYTOSIS (BEAKER) (test dlwr=043) 1+ few ARTIFACT (CELLAVISION)(BEAKER) (test vajx=4427) Present PLATELET CONCENTRATION (CELLAVISION)(BEAKER) Adequate (test gsfl=2992) Received comment: User comments: Slide comments:CREATININE, RANDOM [id number] 11:40:00 Test Item Value Reference Range Comments CREATININE URINE (BEAKER) (test ledc=098) 81.7 mg/dL Reference Range: No NormalsSODIUM, RANDOM [id number] 11:40:00 Test Item Value Reference Range Comments SODIUM URINE (BEAKER) (test omyz=259) 39 meq/L Reference Range: No NormalsCOMPREHENSIVE METABOLIC [id number] 07:31:00 Test Item Value Reference Range Comments TOTAL PROTEIN (BEAKER) 6.0 gm/dL 6.0-8.3 (test sutp=123) ALBUMIN (BEAKER) (test 3.8 g/dL 3.5-5.0 uvea=4291) ALKALINE PHOSPHATASE 51 U/L 40-150 (BEAKER) (test xsnf=273) BILIRUBIN TOTAL (BEAKER) 0.7 mg/dL 0.2-1.2 (test ewqc=741) SODIUM (BEAKER) (test 138 meq/L 136-145 ysgj=351) POTASSIUM (BEAKER) (test 3.8 meq/L 3.5-5.1 othj=531) CHLORIDE (BEAKER) (test 108 meq/L 98-107 rpri=199) CO2 (BEAKER) (test 20 meq/L 22-29 dgvf=202) BLOOD UREA NITROGEN 14 mg/dL 7-21 (BEAKER) (test gkyo=539) CREATININE (BEAKER) (test 2.10 mg/dL 0.57-1.25 apva=512) GLUCOSE RANDOM (BEAKER) 125 mg/dL 70-105 (test objt=745) CALCIUM (BEAKER) (test 8.3 mg/dL 8.4-10.2 pero=548) AST (SGOT) (BEAKER) (test 30 U/L 5-34 yuyz=055) ALT (SGPT) (BEAKER) (test 15 U/L 6-55 pxzb=699) EGFR (BEAKER) (test 43 mL/min/1.73 sq m ESTIMATED GFR IS NOT ykiz=9704) ACCURATE CREATININE CLEARANCE IN PREDICTING GLOMERULAR FILTRATION RATE. ESTIMATED GFR IS NOT APPLICABLE FOR DIALYSIS PATIENTS. [id number] 06:17:00 Test Item Value Reference Range Comments SODIUM (BEAKER) (test dstv=471) 139 meq/L 136-145 POTASSIUM (BEAKER) (test jkkk=914) 3.8 meq/L 3.5-5.1 CHLORIDE (BEAKER) (test whov=676) 109 meq/L 98-107 CO2 (BEAKER) (test cylt=786) 22 meq/L 22-29 URINALYSIS W/ [id number] 01:17:00 Test Item Value Reference Range Comments COLOR (BEAKER) (test wygd=513) Light Yellow CLARITY (BEAKER) (test zuhm=579) Clear SPECIFIC GRAVITY UA (BEAKER) (test rdll=880) 1.007 1.001-1.035 PH UA (BEAKER) (test axvb=323) 5.0 5.0-8.0 PROTEIN UA (BEAKER) (test sfhn=901) 20 mg/dL Negative GLUCOSE UA (BEAKER) (test ecqf=105) Negative Negative KETONES UA (BEAKER) (test jdqj=159) Negative Negative BILIRUBIN UA (BEAKER) (test wpug=098) Negative Negative BLOOD UA (BEAKER) (test aauw=455) Negative Negative NITRITE UA (BEAKER) (test tpir=997) Negative Negative LEUKOCYTE ESTERASE UA (BEAKER) (test inex=542) Negative Negative UROBILINOGEN UA (BEAKER) (test mwhd=524) 0.2 mg/dL 0.2-1.0 RBC UA (BEAKER) (test qrwo=328) 0 /HPF WBC UA (BEAKER) (test dplo=332) 1 /HPF MUCUS (BEAKER) (test fhef=9071) Rare CALCIUM OXALATE CRYSTALS (BEAKER) (test Occasional qxih=091) AMORPHOUS CRYSTALS (BEAKER) (test ezkj=6186) Rare SOURCE(BEAKER) (test auam=3101) Urine, Voided PROTHROMBIN [id number] 23:08:00 Test Item Value Reference Range Comments PROTIME (BEAKER) (test mbhm=468) 13.1 seconds 11.7-14.7 INR (BEAKER) (test sevh=487) 1.0 <=5.9 RECOMMENDED COUMADIN/WARFARIN INR THERAPY RANGESSTANDARD DOSE: 2.0 - 3.0 Includes: PROPHYLAXIS forvenous thrombosis, systemic embolization; TREATMENT for venous thrombosis and/or pulmonary embolus.HIGH RISK: Target INR is 2.5-3.5 for patients with mechanical heart valves.RAD, CHEST, 1 VIEW, NON [id number] 21:49:00Post-intubationReason for exam:->coughShould this be performed [...] Orellana MDReportVerified Date/Time: 03/03/2018 21:49:20 Reading Location: [address] Reading Room
[2019-02-03] MEDS ORDERED: LEVETIRACETAM 500 MG/5 ML VIAL IV ONE (21:23)
[2019-02-03] MEDS ORDERED: NA CHLORIDE 0.9% 1,000 ML ONE (21:23)
[2019-02-03] MEDS ORDERED: LORazepam 2 MG/ML VIAL ONE (21:23)
[2019-02-03] MEDS ORDERED: NA CHLORIDE 0.9% 100 ML IV ONE (21:23)
[2019-02-03 22:09] LABS: Absolute Lymphocytes (CBC) 3.4 K/uL (0.7-4.9); Basophils % 0.7 % (0-1.3); Hematocrit 44.6 % (39.6-49.0); Lymphocytes % 30.1 % (15.3-44.8); MPV 11.3 fL (7.6-11.3); RBC Red Blood Cell Count 4.63 M/uL (4.33-5.43)
[2019-02-03 22:12] LABS: Protime INR 0.94
[2019-02-03 22:21] LABS: Barbiturates NEGATIVE (NEGATIVE); Benzodiazepines NEGATIVE (NEGATIVE); Cocaine NEGATIVE (NEGATIVE); METHAMPHETAM NEGATIVE (NEGATIVE); Methadone NEGATIVE (NEGATIVE); Opiates NEGATIVE (NEGATIVE); Phencyclidine NEGATIVE (NEGATIVE); THC Cannibis NEGATIVE (NEGATIVE)
[2019-02-03 22:37] LABS: ALT/SGPT 39 U/L (12-78); AST/SGOT 29 U/L (15-37); Albumin 4.5 g/dL (3.4-5.0); Alkaline Phosphatase 67 U/L (45-117); BUN Blood Urea Nitrogen 11 mg/dL (7-18); Bilirubin Direct < 0.1 mg/dL (0-0.2); Bilirubin Total 0.3 mg/dL (0.2-1.0); Glucose Level 151 mg/dL (74-106); Potassium 4.7 mmol/L (3.5-5.1); Sodium Level 140 mmol/L (136-145)
[2019-02-03 22:42] LABS: Bicarbonate 10 mmol/L (21-32)
[2019-02-03 22:52] LABS: Blood Morphology Comment NOT SEEN (NOT SEEN); Platelet Estimate ADEQ
--- NOTE | 2019-02-03 22:59 | RAD REPORT ---
EXAM DESCRIPTION: RAD - Chest Single View - 02/03/2019 9:46 pm CLINICAL HISTORY: COUGH Chest pain. COMPARISON: Chest Single View dated 11/16/2018; Chest Single View dated 11/25/2016; Chest Pa And Lat (2 Views) dated 01/26/2016; Chest Single View dated 01/22/2016 FINDINGS: Portable technique limits examination quality. The lungs are grossly clear. The heart is normal in size. Mild thoracic levoscoliosis. IMPRESSION: No acute intrathoracic process suspected.
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
[2019-02-03] MEDS ORDERED: ACETAMINOPHEN 500 MG TAB PO PRN (23:59)
[2019-02-03] MEDS ORDERED: ONDANSETRON 4 MG/2 ML VIAL IV PRN (23:59)
[2019-02-04] MEDS ORDERED: LORazepam 2 MG/ML VIAL IV PRN (00:03)
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
[2019-02-04 01:35] LABS: Blood Gas Oxyhemoglobin 89.6 % (94-97); Blood O2 Saturation 94.4 % (92-98.5)
[2019-02-04 02:21] VITALS: O2SAT 95
[2019-02-04 02:34] VITALS: BMI 30.7
[2019-02-04] MEDS ORDERED: NA CHLORIDE 0.9% 1,000 ML ONE (03:33)
[2019-02-04] MEDS: NA CHLORIDE 0.9% 1,000 ML IV SCH ×2 (03:46→11:04)
[2019-02-04 06:05] VITALS: BP 101/55; TEMP 98.2
[2019-02-04] MEDS ORDERED: levETIRAcetam 500 MG in NA CHLORIDE 0.9% 100 ML IV SCH (09:00)
--- NOTE | 2019-02-04 11:18 | RAD REPORT ---
EXAM DESCRIPTION: CT Head Brain Wo Cont CLINICAL HISTORY: 38 years Male Confused; Seizure TECHNIQUE: Contiguous axial CT images obtained through the brain without IV contrast. Coronal and sa gittal reformats also provided. This CT exam was performed according to our departmental dose-optimization program, which includes on e or more of the following dose reduction techniques: automated exposure control, adjustment of the m A and/or kV according to patient size, and/or use of iterative reconstruction technique. COMPARISON: No prior exams provided for comparison. FINDINGS: There is no intracranial hemorrhage, extra-axial collection, or acute transcortical infarc tion. The ventricles are normal in size and contour without mass-effect or midline shift. Osseous structures are normal. The paranasal sinuses and mastoid air cells are clear. IMPRESSION: No acute intracranial abnormalities. Electronically signed by: Britt Ro MD 02/04/2019 12:34 AM GUEST RELATIONS MANAGER Due to temporary technical issues with the PACS/Fluency reporting system, reports are being signed by the in house radiologist as a courtesy to ensure prompt reporting. The interpreting radiologist is f ully responsible for the content of the report.
--- NOTE | 2019-02-04 15:00 | DS ---
Date of Discharge: 02/04/2019 Discharge Diagnoses: Patient is a 38-year-old male with: 1. Seizure disorder. 2. History of substance abuse. 3. Obesity, BMI of 30. 4. Chronic kidney disease stage 2. Hospital Course: Patient is a 38-year-old male with past medical history of seizure disorder induced by synthetic marijuana, comes in with a seizure episode. Patient has been following with Dr. Yanez, has had his Keppra dose increased in 250 mg increments, currently at 750 b.i.d. The patient states that he is compliant with his medications. According to the spouse, patient does continue to smoke synthetic marijuana and is usually the trigger for his seizures. Patient at this interval had two with one seizure that was not witnessed and then a second witnessed seizure by EMS. Patient was given Ativan and his seizure improved. Seizure usually lasts less than one minute, tonic- clonic type of seizures. Patient had a prolonged postictal state and therefore was brought into the ER. In the hospital, Keppra level was not sent off initially. He was loaded with IV Keppra. Head CT scan was done, which was negative for any acute intracranial abnormalities. Chest x-ray was negative. Patient initially was still postictal, however, did improve the following day. He did have mild elevation of his creatinine at 1.65, which seems to be around his baseline. Patient had minimally elevated white blood cell count. Patient was counseled extensively regarding synthetic marijuana use. He was counseled regarding the precautions to be taken with seizures including no driving, swimming, unattended heights, operating heavy machinery amongst other precautions to be taken with history of seizure. Dr. Yanez was the patient's neurologist was contacted over the phone, agreed with plan of discharge and increasing his dose to 1 g b.i.d. for the Keppra. Patient to follow up with Dr. Yanez as an outpatient in 1 to 2 weeks. Return to ER for worsening condition. Follow with PCP in 2 to 3 days. Diet: Calorie restricted diet. Activity: Seizure precautions. Physical Examination: General: Awake, alert oriented x3. No acute distress. CV: S1, S2. Respiratory: Moving air well bilaterally. Abdomen: Soft, nontender, nondistended. Positive bowel sounds. Extremities: No clubbing, cyanosis, edema. Neurologic: Nonfocal. SA/MODL Voice ID: [id number] Report ID: [id number]
--- NOTE | 2019-02-05 08:12 | EKG ---
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
== END 2019-02-04 12:16 | disposition home or self-care (01) ==
LOC: ER 21:15 → ERHOLD 02-04 00:12 → 2ND 02-04 01:56
PROVIDERS: ADMIT Family Medicine; ATTEND Family Medicine
DX: G40.909 Epilepsy, unspecified, not intractable, without status epilepticus (principal); E66.9 Obesity, unspecified; Z68.30 Body mass index [BMI] 30.0-30.9, adult; F12.11 Cannabis abuse, in remission
CPT/HCPCS: 96365; 96361; 93005; 85025; 80048; 36415; 80320; 80329 ×2; 85610; 80076; 80307 ×8; 85730; 80177; 70450; 71045; 82805; 96375; 99285; J1953 ×2; J7030 ×3; G0378 ×2

== ENCOUNTER 2019-03-09 16:41 | Inpatient (IN) | payer BC ==
[2019-03-09] MEDS ORDERED: LORazepam 2 MG/ML VIAL ONE ×2 (16:43→16:46)
--- OUTSIDE RECORDS SUMMARY | 2019-03-09 16:44 | XMS REPORT ---
:1980 [facility] Address [address] [place] [address] Care Team Providers Name Role Phone LIVIA [...] Comments WHITE BLOOD CELL COUNT (BEAKER) (test uecw=536) 15.9 K/ L 3.5-10.5 RED BLOOD CELL COUNT (BEAKER) (test pxrb=347) 4.25 M/ L 4.63-6.08 HEMOGLOBIN (BEAKER) (test htns=674) 13.3 GM/DL 13.7-17.5 HEMATOCRIT (BEAKER) (test voox=582) 39.1 % 40.1-51.0 MEAN CORPUSCULAR VOLUME (BEAKER) (test kexc=959) 92.0 fL 79.0-92.2 MEAN CORPUSCULAR HEMOGLOBIN (BEAKER) (test bwvj=589) 31.3 pg 25.7-32.2 MEAN CORPUSCULAR HEMOGLOBIN CONC (BEAKER) (test mwje=110) 34.0 GM/DL 32.3- 36.5 RED CELL DISTRIBUTION WIDTH (BEAKER) (test hbko=859) 14.1 % 11.6-14.4 PLATELET COUNT (BEAKER) (test mlbp=231) 176 K/CU MM 150-450 MEAN PLATELET VOLUME (BEAKER) (test lpek=516) 11.7 fL 9.4-12.4 NUCLEATED RED BLOOD CELLS (BEAKER) (test wkei=617) 0 /100 WBC 0-0 (CELLAVISION MANUAL DIFF)2018-03-04 12:29:00 Test Item Value Reference Range Comments NEUTROPHILS - REL (CELLAVISION)(BEAKER) (test 78 % ixou=5386) LYMPHOCYTES - REL (CELLAVISION)(BEAKER) (test 9 % deum=0357) MONOCYTES - REL (CELLAVISION)(BEAKER) (test 12 % tmek=7159) BANDS - REL (CELLAVISION)(BEAKER) (test 1 % 0-10 qnrr=0252) NEUTROPHILS - ABS (CELLAVISION)(BEAKER) (test 12.40 K/ul 1.78-5.38 gbrt=1922) LYMPHOCYTES - ABS (CELLAVISION)(BEAKER) (test 1.43 K/ul 1.32-3.57 otwz=0699) MONOCYTES - ABS (CELLAVISION)(BEAKER) (test 1.91 K/uL 0.30-0.82 unvd=2095) BANDS - ABS (CELLAVISION)(BEAKER) (test 0.16 K/uL 0.00-0.80 ieye=5869) TOTAL COUNTED (BEAKER) (test onvb=5366) 100 WBC MORPHOLOGY (BEAKER) (test orud=125) Normal PLT MORPHOLOGY (BEAKER) (test emes=723) Normal POLYCHROMATOPHILLIC RBCS(BEAKER) (test pyrn=072) 1+ few ANISOCYTOSIS (BEAKER) (test ehnf=024) 1+ few ARTIFACT (CELLAVISION)(BEAKER) (test jjau=7167) Present PLATELET CONCENTRATION (CELLAVISION)(BEAKER) Adequate (test ygxc=6369) Received comment: User comments: Slide comments:CREATININE, RANDOM [id number] 11:40:00 Test Item Value Reference Range Comments CREATININE URINE (BEAKER) (test rmkc=902) 81.7 mg/dL Reference Range: No NormalsSODIUM, RANDOM [id number] 11:40:00 Test Item Value Reference Range Comments SODIUM URINE (BEAKER) (test zrhc=851) 39 meq/L Reference Range: No NormalsCOMPREHENSIVE METABOLIC [id number] 07:31:00 Test Item Value Reference Range Comments TOTAL PROTEIN (BEAKER) 6.0 gm/dL 6.0-8.3 (test xxwu=042) ALBUMIN (BEAKER) (test 3.8 g/dL 3.5-5.0 cwxg=1988) ALKALINE PHOSPHATASE 51 U/L 40-150 (BEAKER) (test vcvm=020) BILIRUBIN TOTAL (BEAKER) 0.7 mg/dL 0.2-1.2 (test wjky=494) SODIUM (BEAKER) (test 138 meq/L 136-145 cbnc=713) POTASSIUM (BEAKER) (test 3.8 meq/L 3.5-5.1 orrv=056) CHLORIDE (BEAKER) (test 108 meq/L 98-107 vncp=365) CO2 (BEAKER) (test 20 meq/L 22-29 eetr=140) BLOOD UREA NITROGEN 14 mg/dL 7-21 (BEAKER) (test ddbu=344) CREATININE (BEAKER) (test 2.10 mg/dL 0.57-1.25 gudp=713) GLUCOSE RANDOM (BEAKER) 125 mg/dL 70-105 (test gsio=711) CALCIUM (BEAKER) (test 8.3 mg/dL 8.4-10.2 vbhb=475) AST (SGOT) (BEAKER) (test 30 U/L 5-34 gbvt=087) ALT (SGPT) (BEAKER) (test 15 U/L 6-55 coct=941) EGFR (BEAKER) (test 43 mL/min/1.73 sq m ESTIMATED GFR IS NOT guxl=7777) ACCURATE CREATININE CLEARANCE IN PREDICTING GLOMERULAR FILTRATION RATE. ESTIMATED GFR IS NOT APPLICABLE FOR DIALYSIS PATIENTS. [id number] 06:17:00 Test Item Value Reference Range Comments SODIUM (BEAKER) (test teyb=949) 139 meq/L 136-145 POTASSIUM (BEAKER) (test tgru=661) 3.8 meq/L 3.5-5.1 CHLORIDE (BEAKER) (test yjsh=407) 109 meq/L 98-107 CO2 (BEAKER) (test mmdu=592) 22 meq/L 22-29 URINALYSIS W/ [id number] 01:17:00 Test Item Value Reference Range Comments COLOR (BEAKER) (test aujf=777) Light Yellow CLARITY (BEAKER) (test xttj=262) Clear SPECIFIC GRAVITY UA (BEAKER) (test xhro=288) 1.007 1.001-1.035 PH UA (BEAKER) (test umba=729) 5.0 5.0-8.0 PROTEIN UA (BEAKER) (test sufw=256) 20 mg/dL Negative GLUCOSE UA (BEAKER) (test lebu=147) Negative Negative KETONES UA (BEAKER) (test ipuq=967) Negative Negative BILIRUBIN UA (BEAKER) (test mnoi=901) Negative Negative BLOOD UA (BEAKER) (test wumq=595) Negative Negative NITRITE UA (BEAKER) (test fpmz=859) Negative Negative LEUKOCYTE ESTERASE UA (BEAKER) (test rdfa=471) Negative Negative UROBILINOGEN UA (BEAKER) (test umku=410) 0.2 mg/dL 0.2-1.0 RBC UA (BEAKER) (test iqfq=802) 0 /HPF WBC UA (BEAKER) (test tqfx=999) 1 /HPF MUCUS (BEAKER) (test udrc=0786) Rare CALCIUM OXALATE CRYSTALS (BEAKER) (test Occasional tfyz=288) AMORPHOUS CRYSTALS (BEAKER) (test ltzd=6820) Rare SOURCE(BEAKER) (test vazy=8522) Urine, Voided PROTHROMBIN TIME/[id number] 23:08:00 Test Item Value Reference Range Comments PROTIME (BEAKER) (test glxh=260) 13.1 seconds 11.7-14.7 INR (BEAKER) (test nxwk=199) 1.0 <=5.9 RECOMMENDED COUMADIN/WARFARIN INR THERAPY RANGESSTANDARD DOSE: 2.0 - 3.0 Includes: PROPHYLAXIS forvenous thrombosis, systemic embolization; TREATMENT for venous thrombosis and/or pulmonary embolus.HIGH RISK: Target INR is 2.5-3.5 for patients with mechanical heart valves.RAD, CHEST, 1 VIEW, NON [id number] 21:49:00Post-intubationReason for exam:->coughShould this be performed [...] Orellana MDReportVerified Date/Time: 03/03/2018 21:49:20 Reading Location: [address] Reading Room
[2019-03-09] MEDS ORDERED: NA CHLORIDE 0.9% 1,000 ML ONE ×2 (16:46→18:55)
[2019-03-09] MEDS ORDERED: levETIRAcetam 1,000 MG in NA CHLORIDE 0.9% 100 ML IV ONE (17:00)
[2019-03-09 17:26] LABS: Protime INR 1.11
--- NOTE | 2019-03-09 17:33 | RAD REPORT ---
EXAM DESCRIPTION: RAD - Chest Single View - 03/09/2019 5:27 pm CLINICAL HISTORY: PAIN Chest pain. COMPARISON: Chest Single View dated 02/03/2019; Chest Single View dated 11/16/2018; Chest Single View dated 11/25/2016; Chest Pa And Lat (2 Views) dated 01/26/2016 FINDINGS: Portable technique limits examination quality. The lungs are grossly clear. The heart is normal in size. No displaced fractures.Mild levoscoliosis o f the upper thoracic spine. IMPRESSION: No acute intrathoracic process suspected.
[2019-03-09 17:36] LABS: ALT/SGPT 22 U/L (12-78); AST/SGOT 21 U/L (15-37); Albumin 5.5 g/dL (3.4-5.0); Alkaline Phosphatase 63 U/L (45-117); BUN Blood Urea Nitrogen 13 mg/dL (7-18); Bilirubin Direct 0.1 mg/dL (0-0.2); Bilirubin Total 0.7 mg/dL (0.2-1.0); Glucose Level 182 mg/dL (74-106); Magnesium 2.9 mg/dL (1.8-2.4); NT PRO-BNP 28 pg/mL (<125); Potassium 3.7 mmol/L (3.5-5.1); Protein, Total 8.7 g/dL (6.4-8.2); Sodium Level 146 mmol/L (136-145); Troponin (Emerg Dept Use Only) < 0.02 ng/mL (0.0-0.045)
[2019-03-09 17:43] LABS: Bicarbonate 5 mmol/L (21-32)
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
[2019-03-09 17:58] LABS: Absolute Lymphocytes (CBC) 7.1 K/uL (0.7-4.9); Basophils % 1.3 % (0-1.3); Lymphocytes % 51.7 % (15.3-44.8); MPV 11.5 fL (7.6-11.3); RBC Red Blood Cell Count 5.11 M/uL (4.33-5.43)
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
[2019-03-09 18:49] LABS: Barbiturates NEGATIVE (NEGATIVE); Benzodiazepines NEGATIVE (NEGATIVE); Cocaine NEGATIVE (NEGATIVE); METHAMPHETAM NEGATIVE (NEGATIVE); Methadone NEGATIVE (NEGATIVE); Opiates NEGATIVE (NEGATIVE); Phencyclidine NEGATIVE (NEGATIVE); THC Cannibis NEGATIVE (NEGATIVE)
[2019-03-09 20:15] LABS: Urine Blood 2+ (NEG); Urine Glucose NEGATIVE (NEG); Urine Specific Gravity 1.025 (1.005-1.030)
[2019-03-09 20:16] LABS: Urine Protein 2+ (NEG)
[2019-03-09] MEDS ORDERED: ACETAMINOPHEN 500 MG TAB PO PRN (21:07)
[2019-03-09] MEDS: D5W 1,000 ML with NA BICARB 8.4% 100 MEQ IV SCH ×2 (21:07)
[2019-03-09] MEDS ORDERED: ONDANSETRON 4 MG/2 ML VIAL IV PRN (21:07)
[2019-03-09] MEDS ORDERED: LORazepam 2 MG/ML VIAL IV PRN (21:07)
[2019-03-09] MEDS ORDERED: levETIRAcetam 1,000 MG in NA CHLORIDE 0.9% 100 ML IV SCH (21:07)
[2019-03-09] MEDS ORDERED: LEVETIRACETAM 500 MG/5 ML VIAL IV ONE (22:03)
[2019-03-09] MEDS ORDERED: NA CHLORIDE 0.9% 100 ML ONE (22:03)
[2019-03-09] MEDS ORDERED: D5W 1,000 ML IV ONE (22:04)
[2019-03-09] MEDS ORDERED: THIAMINE 200 MG/2 ML INJ IVP ONE (23:53)
[2019-03-10 00:28] LABS: CKMB Creatine Kinase MB 5.6 ng/mL (0.3-3.6); Creatine Phosphokinase 748 U/L (39-308); Phosphorus 2.9 mg/dL (2.5-4.9)
[2019-03-10 02:00] LABS: Arterial Blood Carboxyhemoglob 1.9 % (0-1.5); Blood Gas Oxyhemoglobin 93.4 % (94-97); Blood O2 Saturation 96.2 % (92-98.5)
[2019-03-10 05:21] LABS: Absolute Lymphocytes (CBC) 1.3 K/uL (0.7-4.9); Basophils % 0.4 % (0-1.3); Hematocrit 38.4 % (39.6-49.0); Lymphocytes % 8.4 % (15.3-44.8); RBC Red Blood Cell Count 4.25 M/uL (4.33-5.43)
[2019-03-10 05:45] LABS: Albumin 3.6 g/dL (3.4-5.0); Bilirubin Total 0.7 mg/dL (0.2-1.0); Potassium 3.4 mmol/L (3.5-5.1); Protein, Total 5.9 g/dL (6.4-8.2)
[2019-03-10] MEDS ORDERED: levETIRAcetam 1,000 MG in NA CHLORIDE 0.9% 100 ML IV SCH (08:05)
[2019-03-10] MEDS: levETIRAcetam 1,000 MG in NA CHLORIDE 0.9% 100 ML IV SCH ×2 (08:12→20:57)
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
[2019-03-10] MEDS: PIPER/TAZO/NS 3.375gm 3.375 GM/100 ML BAG IVPB ONE ×2 (08:37→08:38)
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
[2019-03-10 08:44] LABS: Potassium 3.5 mmol/L (3.5-5.1)
[2019-03-10] MEDS ORDERED: ENOXAPARIN 40 MG/0.4 ML SQ SCH ×2 (09:00)
[2019-03-10] MEDS ORDERED: ENOXAPARIN 30 MG/0.3 ML SQ SCH (09:00)
--- NOTE | 2019-03-10 10:47 | RAD REPORT ---
EXAM DESCRIPTION: RAD - Chest Single View - 03/10/2019 10:37 am CLINICAL HISTORY: COPD Chest pain. COMPARISON: Chest Single View dated 03/09/2019; Chest Single View dated 02/03/2019; Chest Single View dated 11/16/2018; Chest Single View dated 11/25/2016 FINDINGS: Portable technique limits examination quality. The lungs are grossly clear. The heart is normal in size. No displaced fractures. IMPRESSION: No acute intrathoracic process suspected.
[2019-03-10] MEDS: D5W 1,000 ML with NA BICARB 8.4% 100 MEQ IV SCH ×2 (11:05)
[2019-03-10] MEDS ORDERED: NA CHLORIDE 0.9% 1,000 ML IV SCH (12:00)
--- NOTE | 2019-03-10 12:58 | RAD REPORT ---
EXAM DESCRIPTION: US - Renal Ultrasound-Complete - 03/10/2019 12:34 pm CLINICAL HISTORY: LORENZO COMPARISON: No comparisons FINDINGS: The right kidney measures 12.2 x 4.9 x 5.8 cm. The left kidney measures 12.4 x 7.1 x 6.5 cm. Cortical thickness is normal. There is a mild increase in cortical echogenicity that is nonspecif ic but can be seen in medical renal disease. No hydronephrosis or suspicious renal mass. Bladder is contracted limiting assessment. No gross abnormality. IMPRESSION: No hydronephrosis or suspicious renal mass. Increased cortical echogenicity is nonspecific but can be seen with medical renal disease.
[2019-03-10 13:50] LABS: Urine Appearance CLOUDY; Urine Bilirubin NEGATIVE (NEG); Urine Blood 2+ (NEG); Urine Color YELLOW; Urine Glucose NEGATIVE (NEG); Urine Protein 2+ (NEG); Urine Urobilinogen 0.2 mg/dL (0.2-1.0)
[2019-03-10 14:00] LABS: Barbiturates NEGATIVE (NEGATIVE); Benzodiazepines NEGATIVE (NEGATIVE); Cocaine NEGATIVE (NEGATIVE); METHAMPHETAM NEGATIVE (NEGATIVE); Methadone NEGATIVE (NEGATIVE); Opiates NEGATIVE (NEGATIVE); Phencyclidine NEGATIVE (NEGATIVE); THC Cannibis NEGATIVE (NEGATIVE)
[2019-03-10] MEDS: NA CHLORIDE 0.9% 1,000 ML IV SCH ×2 (14:00→22:12)
[2019-03-10 14:01] LABS: Urine Bacteria <20 /HPF (NONE SEEN); Urine Culture Reflex Order NOT NEEDED
[2019-03-10 14:02] LABS: Urine Amorphous Sediment 1+ /HPF (NONE SEEN)
[2019-03-10 14:07] LABS: UR PROTEIN 93 mg/dL (<11.9)
[2019-03-10 14:08] LABS: UR SODIUM 43 mmol/L (27-287)
[2019-03-10] MEDS: CYCLOBENZAPRINE 10 MG TAB PO SCH ×2 (14:33→20:57)
[2019-03-10 14:55] LABS: Urine Protein/Creatinine Ratio 0.77 ratio (<0.15)
--- NOTE | 2019-03-10 15:57 | EKG ---
Test Date: 2019-03-09 Test Time: 18:24:46 Multi Care Technician: ELBERT MEASUREMENT RESULTS: Intervals: Rate: 81 VT: 124 QRSD: 100 QT: 386 QTc: 448 Lawn: P: 74 VT: 124 QRS: 69 T: 73 INTERPRETIVE STATEMENTS: Normal sinus rhythm with sinus arrhythmia Nonspecific T wave abnormality Abnormal ECG Compared to ECG 02/03/2019 21:30:57 T-wave abnormality now present Electronically Signed On 03-10-19 15:52:22 CLINICAL BIOSTATISTICIAN by Anuj Lawrence
[2019-03-10 16:09] LABS: C.diff Antigen/Toxin Ag neg : Tox neg (NEG : NEG)
[2019-03-10] MEDS ORDERED: PIPER/TAZO/NS 2.25gm 2.25 GM/50 ML BAG IVPB SCH (17:00)
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
[2019-03-10] MEDS: HYDROCODONE/APAP 5/325 MG TAB PO PRN (17:45)
--- NOTE | 2019-03-10 19:22 | P.PN ---
Subjective Date of Service: 03/10/19 Chief Complaint: acute seizure disorder; metabolic acidosis; dental abscess Patient has diarrhea. His renal function is worse today. No more seizures today. He is complaining of pain in the back of the neck radiating to the shoulders. Physical Examination - Vital Signs Temperature: 98.2 F Blood Pressure: 108/72 Pulse: 55 Respirations: 25 Pulse Ox (%): 100 - Physical Exam General: Alert, In no apparent distress, Oriented x3 HEENT: Normocephalic, Mucous membr. moist/pink Neck: Supple Respiratory: Clear to auscultation bilaterally, Normal air movement Cardiovascular: No edema, Regular rate/rhythm, Normal S1 S2 Capillary refill: <2 Seconds Gastrointestinal: Normal bowel sounds, Soft and benign, Non-distended, No tenderness Neurological: Normal speech, Normal strength at 5/5 x4 extr Assessment And Plan - Current Problems (Diagnosis) (1) Dental abscess Current Visit: Yes Status: Acute (2) Metabolic acidosis Current Visit: Yes Status: Acute (3) Seizure disorder Current Visit: No Status: Acute (4) Acute renal failure Current Visit: Yes Status: Acute - Plan Patient is having diarrhea and could be related to Zosyn. Will change antibiotics to clindamycin and cefepime. Continue Keppra Ativan p.r.n. for breakthrough seizures. MRI of the brain requested by neurology Nephrology input appreciated. LORENZO is likely pre-renal. Patient on IV fluids Monitor renal function
--- NOTE | 2019-03-10 20:48 | RAD REPORT ---
EXAM DESCRIPTION: MRI - C Spine Wo Cont - 03/10/2019 7:49 pm CLINICAL HISTORY: Neck and Shoulder Spine COMPARISON: SPINE CERVICAL AP LAT dated 02/27/2012 TECHNIQUE: Sagittal T1-weighted, T2-weighted and T2-STIR sequences were obtained as well as T2 medic sequence. FINDINGS: Cervical bodies are normal in height. No subluxation abnormality. There is straightening o f the usual cervical lordosis. No suspicious marrow edema or marrow replacing process. No paraspinal mass. Cerebellar tonsils and mid-line skull base show no suspicious finding. No significant finding at the C1 and C2 levels. C2-3 level: No significant findings. C3-4 level: Disc desiccation C4-5 level: A mild broad-based disc herniation extends across the central canal attenuating the anter ior subarachnoid space. Anterior cord is flattened. Stenosis to 8 mm is present. Uncovertebral joint hypertrophy causes bilateral foraminal stenosis. Disc is desiccated C5-6 level: Disc desiccation. Uncovertebral joint hypertrophy causes left foraminal stenosis. C6-7 level: No significant findings. C7-T1 level: No significant findings. No cord signal abnormality. IMPRESSION: C4-5 mild broad base disc herniation across the central canal. Cord is flattened with mi ld spinal stenosis to 8 mm. C3-4 and C5-6 disc desiccation. Cervical spondylosis causing bilateral C4-5 and left C5-6 foraminal stenosis.
[2019-03-10] MEDS ORDERED: CEFEPIME 1 GM/VIAL IV SCH (21:00)
[2019-03-10] MEDS: CEFEPIME/SWI 1gm 10 ML IV SCH (21:18)
[2019-03-10] MEDS ORDERED: HYDROMORPHONE HCL 0.5 MG/0.5 ML INJ IV ONE (21:23)
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
[2019-03-11] MEDS ORDERED: CLINDAMYCIN IV 150 MG/ML (4 mL) VIAL ONE (00:55)
[2019-03-11] MEDS: CLINDAMYCIN INJ 600 MG in NA CHLORIDE 0.9% 50 ML IV SCH ×3 (01:23→17:26)
[2019-03-11] MEDS: HYDROCODONE/APAP 5/325 MG TAB PO PRN ×2 (01:24→18:28)
[2019-03-11] MEDS ORDERED: NA CHLORIDE 0.9% 50 ML ONE (01:24)
[2019-03-11 05:58] LABS: Albumin 3.5 g/dL (3.4-5.0); Phosphorus 4.9 mg/dL (2.5-4.9); Potassium 3.6 mmol/L (3.5-5.1); Thyroid Stimulating Hormone 1.48 uIU/mL (0.360-3.740); Uric Acid 13.6 mg/dL (3.5-7.2)
[2019-03-11] MEDS: NA CHLORIDE 0.9% 1,000 ML IV SCH (06:00)
[2019-03-11] MEDS: CEFEPIME/SWI 1gm 10 ML IV SCH (08:24)
[2019-03-11] MEDS: levETIRAcetam 1,000 MG in NA CHLORIDE 0.9% 100 ML IV SCH ×2 (08:24→20:33)
[2019-03-11] MEDS ORDERED: NACHLORIDE 0.45% 1,000 ML with NA BICARB 8.4% 75 MEQ IV SCH ×2 (10:00)
--- NOTE | 2019-03-11 11:46 | P.PN ---
Subjective Date of Service: 03/11/19 Chief Complaint: acute seizure disorder; metabolic acidosis; dental abscess Patient states the diarrhea has improved. His renal function continue to worsen No more seizures. He is complaining of pain in the back of the neck radiating to the shoulders. MRI of cervical spine reviewed and reporting cervical spine disk herniation and mild central canal stenosis. Physical Examination - Vital Signs Temperature: 98.2 F Blood Pressure: 122/73 Pulse: 58 Respirations: 11 Pulse Ox (%): 97 - Physical Exam General: Alert, In no apparent distress, Oriented x3 Neck: Supple, JVD not distended Respiratory: Clear to auscultation bilaterally, Normal air movement Cardiovascular: No edema, Regular rate/rhythm, Normal S1 S2 Gastrointestinal: Normal bowel sounds, Soft and benign, Non-distended, No tenderness Musculoskeletal: No swelling, No erythema Integumentary: No rashes Neurological: Normal speech, Normal strength at 5/5 x4 extr Assessment And Plan - Current Problems (Diagnosis) (1) Dental abscess Current Visit: Yes Status: Acute (2) Metabolic acidosis Current Visit: Yes Status: Acute (3) Seizure disorder Current Visit: No Status: Acute (4) Acute renal failure Current Visit: Yes Status: Acute (5) Cervical disc disease Current Visit: Yes Status: Acute - Plan Continue current antibiotics Continue Keppra Ativan p.r.n. for breakthrough seizures. Neurology to follow regarding cervical disk herniation Renal function is worsening. Patient seen and being followed by nephrology. IV fluid change to bicarb drip given rise in CPK Continued to monitor renal function.
[2019-03-11 11:58] LABS: Bilirubin Direct 0.2 mg/dL (0-0.2); Bilirubin Total 0.6 mg/dL (0.2-1.0); Protein, Total 5.9 g/dL (6.4-8.2)
[2019-03-11 13:36] LABS: Rheumatoid Factor NEG (NEG)
[2019-03-11 16:58] LABS: Urine Appearance CLEAR; Urine Bilirubin NEGATIVE (NEG); Urine Blood 2+ (NEG); Urine Color YELLOW; Urine Glucose NEGATIVE (NEG); Urine Protein NEGATIVE (NEG); Urine Specific Gravity <=1.005 (1.005-1.030); Urine Urobilinogen 0.2 mg/dL (0.2-1.0)
[2019-03-11 17:02] LABS: Urine Microscopic Reflex ORDER UMIC
[2019-03-11 17:09] LABS: Urine Bacteria <20 /HPF (NONE SEEN); Urine Culture Reflex Order NOT NEEDED; Urine Mucus 1+ /HPF (NONE SEEN)
[2019-03-11] MEDS: WATER FOR INJ,STERILE 1,000 ML with NA BICARB 8.4% 150 MEQ IV SCH ×2 (18:18)
--- NOTE | 2019-03-11 19:41 | PN ---
Date of Progress Note: 03/11/2019 Subjective: The patient was admitted with a seizure, found to have an elevated BUN and creatinine. The patient also found to have rhabdomyolysis. The patient yesterday started on hydration. Kidney f unction continued to decline. Physical Examination: Vital Signs: Blood pressure 117/76, pulse of 57, afebrile. The patient had good urine output of voi ding 1300. Chest: Clear to auscultation. Heart: S1, S2. Regular. Abdomen: Soft, nontender. Extremities: No edema. Neurological: Alert and oriented x3. No tremor. Laboratory Data: WBC 15.2, H and H 13.1/38.4, platelets of 171 that is yesterday. Sodium 142, potas sium 3.6, bicarb 22, BUN 17, creatinine up to 4.3, GFR of 19, uric acid 13.6, calcium 7.6, phos 4.9. CK 1268. PTH 104. Urinalysis; specific gravity of 1.010, pH of 6, +2 protein. PC ratio of 0.7. Current Medications: The patient on include normal saline at 125 per hour, cefepime, clindamycin, Zo syn, Keppra, lorazepam, Zofran. Assessment And Plan: 1.Acute kidney injury, multifactorial secondary to rhabdomyolysis superimposed both with poor perfus ion, acute tubular necrosis, and secondary to low blood pressure, superimposed with ibuprofen use. T he patient continue to worsening kidney function. I keep holding SHELLY inhibitor. We can up his IV fl uid. We will switch it to sodium bicarb drip to alkalize the urine and we will monitor the patient c losely given that there is no uremia, no hyperkalemia, or any significant acidosis. I do not see the need to initiate any renal replacement therapy for today, but anyhow I discussed with the patient th at if kidney function continues to decline, the patient may need renal replacement therapy. Patient on agreement. 2.Rhabdomyolysis secondary to seizure/fasciitis. Patient is still complaining of neck pain. MRI. There is no comment on the muscles for review it with the Radiology. Again, I am going to switch IV fluid to a bicarb drip for goal pH of 6.527 and we will monitor the patient. 3.Hypokalemia. We will supplement cautiously. 4.Seizure as by primary. 5.Seizure with renal failure to rule out hemolytic uremic syndrome. LDH and haptoglobin are still p ending. We will follow up. 6.Hyperparathyroidism. Calcium and phos at the goal. I do not see a need for vitamin D for the loli e being. 7.Leukocytosis as by primary. I agree with holding the Zosyn for the time being. KATHY Voice ID: [id number] Report ID: [id number]
[2019-03-11] MEDS: CYCLOBENZAPRINE 10 MG TAB PO SCH (20:32)
[2019-03-12] MEDS: CLINDAMYCIN INJ 600 MG in NA CHLORIDE 0.9% 50 ML IV SCH ×2 (00:14→08:18)
[2019-03-12] MEDS: HYDROCODONE/APAP 5/325 MG TAB PO PRN ×3 (00:30→19:28)
[2019-03-12 01:07] LABS: Urine Appearance CLEAR; Urine Bilirubin NEGATIVE (NEG); Urine Blood 1+ (NEG); Urine Color YELLOW; Urine Glucose NEGATIVE (NEG); Urine Specific Gravity <=1.005 (1.005-1.030)
[2019-03-12 01:08] LABS: Urine Microscopic Reflex ORDER UMIC; Urine Protein NEGATIVE (NEG); Urine Urobilinogen 0.2 mg/dL (0.2-1.0)
[2019-03-12 02:01] LABS: Urine Bacteria <20 /HPF (NONE SEEN); Urine Culture Reflex Order NOT NEEDED; Urine RBC <5 /HPF (NONE SEEN); Urine Urothelial Cells <5 /HPF (NONE SEEN)
[2019-03-12] MEDS: WATER FOR INJ,STERILE 1,000 ML with NA BICARB 8.4% 150 MEQ IV SCH ×4 (02:04→11:23)
[2019-03-12 06:28] LABS: Albumin 3.1 g/dL (3.4-5.0); Phosphorus 3.5 mg/dL (2.5-4.9); Potassium 3.3 mmol/L (3.5-5.1)
[2019-03-12] MEDS ORDERED: CEFEPIME/SWI 1gm 10 ML IV SCH (09:00)
[2019-03-12] MEDS: levETIRAcetam 1,000 MG in NA CHLORIDE 0.9% 100 ML IV SCH ×2 (09:24→20:31)
[2019-03-12] MEDS ORDERED: POTASSIUM CL SA 10 MEQ TAB PO ONE (10:45)
[2019-03-12] MEDS ORDERED: POTASSIUM CL 40 MEQ in NA CHLORIDE 0.9% 500 ML IV SCH (11:00)
--- NOTE | 2019-03-12 12:16 | P.PN ---
Subjective Date of Service: 03/12/19 Chief Complaint: acute seizure disorder; metabolic acidosis; dental abscess Patient denies any diarrhea today. His renal function has improved. No more seizures. No recorded fever. Physical Examination - Vital Signs Temperature: 97.9 F Blood Pressure: 138/74 Pulse: 58 Respirations: 32 Pulse Ox (%): 98 - Physical Exam General: Alert, In no apparent distress, Oriented x3 HEENT: Mucous membr. moist/pink, Sclerae nonicteric Neck: Supple, JVD not distended Respiratory: Clear to auscultation bilaterally, Normal air movement Cardiovascular: No edema, Regular rate/rhythm, Normal S1 S2 Gastrointestinal: Normal bowel sounds, Soft and benign, Non-distended, No tenderness Musculoskeletal: No erythema Integumentary: No rashes Neurological: Normal speech, Normal strength at 5/5 x4 extr Assessment And Plan - Current Problems (Diagnosis) (1) Dental abscess Current Visit: Yes Status: Acute (2) Metabolic acidosis Current Visit: Yes Status: Resolved (3) Seizure disorder Current Visit: No Status: Acute (4) Acute renal failure Current Visit: Yes Status: Acute (5) Cervical disc disease Current Visit: Yes Status: Acute - Plan Sweets IV antibiotics to oral Augmentin Continue Keppra Ativan p.r.n. for breakthrough seizures. MRI of the cervical spine results discussed with Dr. Irizarry. Dr. Irizarry recommended outpatient follow up. Renal function is improving. Continue IV hydration. CPK level is still high. Nephrology is following. Continued to monitor renal function. Renally dose medications.
[2019-03-12] MEDS: AMOX/K CLAV 500 MG TAB PO SCH (20:31)
[2019-03-12] MEDS: CYCLOBENZAPRINE 10 MG TAB PO SCH (20:32)
[2019-03-13] MEDS: WATER FOR INJ,STERILE 1,000 ML with NA BICARB 8.4% 150 MEQ IV SCH ×4 (00:04→09:47)
--- NOTE | 2019-03-13 00:34 | PN ---
Date of Progress Note: 03/12/2019 History: Patient was admitted with rhabdomyolysis secondary to seizures. Patient was started on bicarb drip yesterday. Kidney function started improving trending down Cr , good UOP . Physical Examination: Vital Signs: Blood pressure Chest: Clear to auscultation. Heart: S1, S2. Regular. Abdomen: Soft, nontender. Extremities: No edema. Laboratory Data: WBC 15.22, H and H 13.1 and 38.4, platelets 171. Sodium 138, potassium is 3.3, bicarb 26, BUN 12, creatinine down to 2.2. GFR of 26. Calcium 7.6, phosphorus 3.5, CK 1239, albumin 8.1, serum protein electrophoresis WNL . PTH 104. Urinalysis; specific gravity 1.005, pH of 6. Current Medications: The patient is on include, 1. Augmentin. 2. Flexeril. 3. Tylenol. 4. Zofran. Assessment And Plan: 1. Acute kidney injury secondary to rhabdomyolysis on recovery phase. Nonoliguric. No hyperkalemia. No acidosis. I am going to continue bicarb drip. We will decrease IV 100 and we will continue to monitor the patient. 2. Rhabdomyolysis secondary to seizure. Continue current treatment. Continue bicarb. 3. Hypertension, controlled, optimal. 4. Hypokalemia. We will supplement. 5. Secondary hyperparathyroidism. I do not see the need for any vitamin D for the time being. KATHY Voice ID: [id number] Report ID: [id number]
[2019-03-13] MEDS: HYDROCODONE/APAP 5/325 MG TAB PO PRN (00:59)
[2019-03-13 05:56] LABS: Albumin 3.2 g/dL (3.4-5.0); Phosphorus 3.3 mg/dL (2.5-4.9); Potassium 3.3 mmol/L (3.5-5.1)
[2019-03-13 06:17] VITALS: TEMP 98.3
[2019-03-13 06:27] VITALS: BMI 28.4
[2019-03-13] MEDS ORDERED: POTASSIUM CL SA 10 MEQ TAB PO ONE (09:44)
[2019-03-13] MEDS: AMOX/K CLAV 500 MG TAB PO SCH (09:47)
[2019-03-13] MEDS: levETIRAcetam 1,000 MG in NA CHLORIDE 0.9% 100 ML IV SCH (09:47)
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
[2019-03-13 11:59] VITALS: BP 144/88
--- NOTE | 2019-03-13 13:22 | P.PN ---
Subjective Date of Service: 03/13/19 Chief Complaint: acute seizure disorder; metabolic acidosis; dental abscess subjective pt admitted for seziure, found to have LORENZO with rhabdomyolysis Today No overnight events asymptomatic bradycardia, cr improve to 1.9 high sodium and bicarb, dc IVF cleared for discharge from nephrology point of view can follow with nephrology clinic in 2-3 wks Physical Examination - Vital Signs Temperature: 98.3 F Blood Pressure: 144/88 Pulse: 52 Respirations: 18 Pulse Ox (%): 96 Assessment And Plan - Current Problems (Diagnosis) (1) Acute renal failure Current Visit: Yes Status: Acute - Plan Physical exam general: AAOX3, NAD , obese Neck; Supple, No elevated JVD hear: RRR, normal S1,2 no murmur or rub Chest: CTAB, no rlaes or wheezes Abdomen: Soft , Nt Extremities No edema or ulcer Acute kidney injury Due to dehydration and rhabdo improving can be discharged from nephrology point of view f/u [facility] nephrology clinic Rhabdomyolysis due to seizure. Seizure disorder Cont keppra
[2019-03-13 14:48] VITALS: O2SAT 94
[2019-03-13 16:58] LABS: Hepatitis C Virus RNA (PCR)log <1.18 log IU/mL
[2019-03-15 15:04] LABS: HIV AG/AB 4TH GEN Non-reactive (Non-reactive)
[2019-03-16 04:47] LABS: HBsAG Nonreactive (Nonreactive)
[2019-03-16 06:06] LABS: Albumin, (SPE) 3.2 g/dL (3.8-4.8); Alpha-1-Globulins 0.3 g/dL (0.2-0.3); Alpha-2-Globulins 0.6 g/dL (0.5-0.9); Gamma Globulins 0.5 g/dL (0.8-1.7); INTERPRETATION Consistent with
== END 2019-03-13 14:35 | disposition home or self-care (01) | DRG 100 ==
LOC: ER 16:41 → ERHOLD 18:25 → INTOOBSV 18:25 → 3RD-ICU 20:41 → OBSVTOIN 03-11 13:21
PROVIDERS: ADMIT Family Medicine; ATTEND Internal Medicine
DX: G40.409 Other generalized epilepsy and epileptic syndromes, not intractable, without status epilepticus (principal); N17.0 Acute kidney failure with tubular necrosis; M62.82 Rhabdomyolysis; N25.81 Secondary hyperparathyroidism of renal origin; E78.2 Mixed hyperlipidemia; E87.6 Hypokalemia; K04.7 Periapical abscess without sinus; N18.3 Chronic kidney disease, stage 3 (moderate); D72.829 Elevated white blood cell count, unspecified; Z87.820 Personal history of traumatic brain injury
CPT/HCPCS: 36415; 51702; 70450; 71045; 72125; 72141; 76770; 80048; 80053; 80069; 80076; 80307; 80320; 80329; 81001; 81003; 81015; 82010; 82435; 82550; 82553; 82570; 82805; 83010; 83520; 83605; 83615; 83735; 83880; 83970; 84100; 84132; 84145; 84156; 84165; 84300; 84443; 84484; 84550; 85025; 85610; 85730; 86021; 86038; 86160; 86225; 86317; 86430; 86704; 86706; 87324; 87340; 87389; 87449; 87522; 88108; 93005; 96361; 96365; 96375; 99285; G0378; J0692; J1170; J1953; J2543; J3411; J7030; J7040; S0077

== ENCOUNTER 2019-11-03 07:21 | Emergency (ER) | payer BC, SELFPAY ==
--- OUTSIDE RECORDS SUMMARY | 2019-11-03 07:23 | XMS REPORT | Continuity of Care Document ---
:1980 Author Organization [facility] t Address [address] [place] [address] Care Team Providers Name Role Phone Chris Yanez Attending Clinician LYN JOSEPH Attending Clinician Unavail able Angel Attending Clinician LYN JOSEPH Admitting Clinician Unavail able Angel Admitting Clinician Problems Condition Condition Condition Status Onset Resolution Last Treating Co mments Source Name Details Category Date Date Treatment Clinician Date Status Status Disease Active [facility] epilepticu 1- Fatimah kes - s s 00:00: Medical 00 [place] Acute Acute Disease Active [facility] encephalop encephalop 1- Fatimah kes - athy athy 00:00: Medical 00 [place] Seizure Seizure Disease Active [facility] - [facility]: Medical 00 [place] COMPLEX Diagnosis Active 2014-09-14 Me moria RETINAL 3- 07:57:00 l DETACHMENT COMPLEX 00:00: Her fuentes RETINAL 00 DETACHMENT Active 05/06/2014 [facility] Retinal Problem Active 2014-07-30 Joseph logan detachment 00:34:47 l (disorder) 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 07/30/2014 [facility] 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 logan 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) epileptic seizure (disorder) Active Problem 11/23/2018 [facility] Headache Problem Active 2018-11-23 Mem oria (finding) 00:22:41 l Headache Krishan n (finding) Active Problem 11/23/2018 [facility] DETACHMNT Diagnosis Active 2014-09-14 Memoria W DEFECT 07:57:00 l NOS [place] DETACHMNT W DEFECT NOS Active [facility] Allergies, Adverse Reactions, Alerts Allergy Allergy Status Severity Reaction(s) Onset Inactive Treating Comm ents Source Name Type Date Date Clinician Iodine Propensi Active [facility]ness [facility] to Breath, 03-03 [facility] - Iodide adverse Swelling 00:00: Medical Containi reaction 00 Center ng s Products Food Food Active Memoria Shellfis Shellfis l h h [place] iodine [facility] Social History Social Habit Start Date Stop Date Quantity Comments Source History of tobacco 2018-03-[address] [facility] - use 00:00:00 day smoker [facility] Sex Assigned At [facility] Cigarettes smoked 2018-03-04 2018-03-[address] [facility] - current (pack per 00:00:00 00:00:00 [facility] Center day) - Reported History [facility] 2018-03-04 2018-03-[address] [facility] - Alcohol Frequency 00:00:00 00:00:00 [facility] History [facility] 2018-03-04 2018-03-[address] [facility] - Alcohol Std Drinks 00:00:00 00:00:00 [facility] History [facility] 2018-03-04 2018-03-[address] [facility] - Alcohol Binge 00:00:00 00:00:[address] Smoking Status Start Date Stop Date Source Social History 2018-04-01 19:26:54 [facility] Social History 2014-07-15 18:42:09 2014-07-15 18:42:09 [facility] Medications Ordered Filled Start Stop Current Ordering Indication Dosage Frequency Signature Comments Components Source Medication Medication Date Date Medication? Clinician (SIG) Name Name levETIRAcet 2020- No 750mg Q.5D Take [address] [facility] (KEPPRA) 03-04 tablet [facility] - 750 MG 00:00: 23:59 (750 mg Medical tablet 00 :00 total) by Center mouth 2 (two) times daily. Levetiracet No 500 mg = 1 Memoria am 500 MG 02-14 tab, PO, l Oral Tablet 20:26: BID, # 60 H ermann [Keppra] 00 tab, 3 Refill(s), Pharmacy: [id number] Levetiracet No 500 mg = 1 Memoria am 500 MG 1-04 tab, PO, l Oral Tablet 20:05: BID, # 60 H ermann [Keppra] 00 tab, 0 Refill(s) Naloxone No Notes: Memoria 6-16 Same as l 17:30: Narcan Hydromorpho No Notes: Joseph logan ne 16 Same as: l 17:30: Dilaudid Ondansetron No Notes: Joseph logan -16 (Same as: l 17:30: Zofran) MEDICATION WASTE Product Size: 4 mg Product Wasted: _0__ mg Promethazin No Notes: Do M emoria e 07-27 not give l 17:30: IV push. (Same as: Phenergan) Meperidine No Notes: Memor ia -16 (Same as: l 17:30: Demerol) "Use Precaution in Elderly, Seizure disorders, and Renal impairment " Flumazenil No Notes: Memor ia 6-16 (Same as: l 17:30: Romazicon) Oxycodone No Notes: Memori a Hydrochlori 16 (Same as: l de 1 MG/ML 17:30: 'Roxicodon H ermann Oral 00 e) Solution tropicamide No Notes: Joseph logan ophthalmic -16 (Same As: l 13:00: Mydriacyl, [place] 00 Opticyl, Tropicacyl ) phenylephri No 1 drp, Joseph logan ne -16 Route: l ophthalmic 13:00: LEFT EYE, He rmann 2.5% 00 ONCALL, solution Drug form: SOLN, Start date: 07/27/14 8:00:00, Duration: 1 day, Stop date: 07/28/14 7:59:00 Vital Signs Vital Name Observation Time Observation Value Comments Source Height 2018-02-14 20:01:00 177.8 cm [facility] [place] Weight 2018-02-14 20:01:00 [facility] BMI Calculated 2018-02-14 20:01:00 [facility] Respitory Rate 2018-02-14 20:01:00 Memori al [place] Heart Rate 2018-02-14 20:01:00 [facility] Systolic (mm Hg) 2018-02-14 20:01:00 Joseph rial [place] Diastolic (mm Hg) 2018-02-14 20:01:00 Mem orial [place] Systolic (mm Hg) 2014-07-27 18:35:00 Joseph rial [place] Diastolic (mm Hg) 2014-07-27 18:35:00 Mem orial [place] Heart Rate 2014-07-27 18:35:00 [facility] Respitory Rate 2014-07-27 18:35:00 [facility] [place] Respitory Rate 2014-07-27 18:15:00 Memori al [place] Systolic (mm Hg) 2014-07-27 18:15:00 Joseph rial [place] Diastolic (mm Hg) 2014-07-27 18:15:00 Mem orial [place] Systolic (mm Hg) 2014-07-27 18:00:00 Joseph rial [place] Diastolic (mm Hg) 2014-07-27 18:00:00 Mem orial [place] Respitory Rate 2014-07-27 18:00:00 [facility] [place] Heart Rate 2014-07-27 12:13:00 [facility] Weight 2014-07-15 18:40:00 [facility] [place] BMI Calculated 2014-07-15 18:40:00 [facility] [place] Height 2014-07-15 18:40:00 180.34 cm [facility] Procedures Procedure Date / Time Performed Performing Clinician [facility] e Eye operation [facility] [place] Encounters Start End Encounter Admission Attending Care Care Encounter Source Date/Time Date/Time Type Type Clinicians Facility Department ID 2018-11-19 2018-11-20 Outpatient MISCHER MISCHER [id number] 17:00:05 23:59:59 00 2018-07-03 2018-07-03 Outpatient KERRY YanezSCHKIM [id number] 13:15:00 13:15:00 Per Perez 2018-02-18 2018-02-18 Outpatient KERRY Yanez MISCH [id number] 15:00:00 23:59:59 Per 01 Chris 2018-02-14 2018-02-14 Outpatient KERRY Yanez BENNETT [id number] 14:00:00 23:59:59 Per 00 Chris 2014-07-27 2014-07-27 Outpatient NIKO Ortiz [id number] 06:30:00 23:59:00 Monica 00 Results Test Description Test Time Test Comments Results Result Comments Source CBC W/PLT COUNT & AUTO DIFFERENTIAL 2018-03-04 12:29:00 Test Item Value Reference Range Interpretation Comme nts WHITE BLOOD CELL COUNT (BEAKER) (test code = 775) 15.9 K/ L 3.5- 10.5 H RED BLOOD CELL COUNT (BEAKER) (test code = 761) 4.25 M/ L 4.63-6 .08 L HEMOGLOBIN (BEAKER) (test code = 410) 13.3 GM/DL 13.7-17.5 L HEMATOCRIT (BEAKER) (test code = 411) 39.1 % 40.1-51.0 L MEAN CORPUSCULAR VOLUME (BEAKER) (test code = 753) 92.0 fL 79. 0-92.2 MEAN CORPUSCULAR HEMOGLOBIN (BEAKER) (test code = 751) 31.3 pg 25.7-32.2 MEAN CORPUSCULAR HEMOGLOBIN CONC (BEAKER) (test code = 752) 34.0 GM/DL 32.3-36.5 RED CELL DISTRIBUTION WIDTH (BEAKER) (test code = 412) 14.1 % 11.6-14.4 PLATELET COUNT (BEAKER) (test code = 756) 176 K/CU MM 150-450 MEAN PLATELET VOLUME (BEAKER) (test code = 754) 11.7 fL 9.4-12 .4 NUCLEATED RED BLOOD CELLS (BEAKER) (test code = 413) 0 /100 WBC 0 -0 (CELLAVISION MANUAL DIFF)2018-03-04 12:29:00 Test Item Value Reference Range Interpretation Comments NEUTROPHILS - REL 78 % (CELLAVISION)(BEAKER) (test code = 2816) LYMPHOCYTES - REL 9 % (CELLAVISION)(BEAKER) (test code = 2817) MONOCYTES - REL 12 % (CELLAVISION)(BEAKER) (test code = 2818) BANDS - REL (CELLAVISION)(BEAKER) 1 % 0-10 (test code = 2826) NEUTROPHILS - ABS 12.40 K/ul 1.78-5.38 H (CELLAVISION)(BEAKER) (test code = 2830) LYMPHOCYTES - ABS 1.43 K/ul 1.32-3.57 (CELLAVISION)(BEAKER) (test code = 2831) MONOCYTES - ABS 1.91 K/uL 0.30-0.82 H (CELLAVISION)(BEAKER) (test code = 2832) BANDS - ABS (CELLAVISION)(BEAKER) 0.16 K/uL 0.00-0.80 (test code = 2840) TOTAL COUNTED (BEAKER) (test code 100 = 1351) WBC MORPHOLOGY (BEAKER) (test code Normal = 487) PLT MORPHOLOGY (BEAKER) (test code Normal = 486) POLYCHROMATOPHILLIC RBCS(BEAKER) 1+ few (test code = 478) ANISOCYTOSIS (BEAKER) (test code = 1+ few 961) ARTIFACT (CELLAVISION)(BEAKER) Present (test code = 3432) PLATELET CONCENTRATION Adequate (CELLAVISION)(BEAKER) (test code = 3438) Received comment: User comments: Slide comments:CREATININE, RANDOM URINE 2018-03-04 11:40:00 Test Item Value Reference Range Interpretation Comments CREATININE URINE (BEAKER) (test 81.7 mg/dL code = 375) Reference Range: No NormalsSODIUM, RANDOM [id number] 11:40:00 Test Item Value Reference Range Interpretation Comments SODIUM URINE (BEAKER) (test code = 39 meq/L 243) Reference Range: No NormalsCOMPREHENSIVE METABOLIC [id number] 07:31:00 Test Item Value Reference Range Interpretation Comments TOTAL PROTEIN 6.0 gm/dL 6.0-8.3 (BEAKER) (test code = 770) ALBUMIN (BEAKER) 3.8 g/dL 3.5-5.0 (test code = 1145) ALKALINE PHOSPHATASE 51 U/L 40-150 (BEAKER) (test code = 346) BILIRUBIN TOTAL 0.7 mg/dL 0.2-1.2 (BEAKER) (test code = 377) SODIUM (BEAKER) (test 138 meq/L 136-145 code = 381) POTASSIUM (BEAKER) 3.8 meq/L 3.5-5.1 (test code = 379) CHLORIDE (BEAKER) 108 meq/L 98-107 H (test code = 382) CO2 (BEAKER) (test 20 meq/L 22-29 L code = 355) BLOOD UREA NITROGEN 14 mg/dL 7-21 (BEAKER) (test code = 354) CREATININE (BEAKER) 2.10 mg/dL 0.57-1.25 H (test code = 358) GLUCOSE RANDOM 125 mg/dL 70-105 H (BEAKER) (test code = 652) CALCIUM (BEAKER) 8.3 mg/dL 8.4-10.2 L (test code = 697) AST (SGOT) (BEAKER) 30 U/L 5-34 (test code = 353) ALT (SGPT) (BEAKER) 15 U/L 6-55 (test code = 347) EGFR (BEAKER) (test 43 mL/min/1.73 ESTIMA PIPE GFR IS code = 1092) sq m NOT ACCURATE CREATININE CLEARANCE IN PREDICTING GLOMERULAR FILTRATION RATE . ESTIMATED GFR I S NOT APPLICABLE FOR DIALYSIS PATIEN TS. [id number] 06:17:00 Test Item Value Reference Range Interpretation Comments SODIUM (BEAKER) (test code = 381) 139 meq/L 136-145 POTASSIUM (BEAKER) (test code = 3.8 meq/L 3.5-5.1 379) CHLORIDE (BEAKER) (test code = 382) 109 meq/L 98-107 H CO2 (BEAKER) (test code = 355) 22 meq/L 22-29 URINALYSIS W/ [id number] 01:17:00 Test Item Value Reference Range Interpretation Comments COLOR (BEAKER) (test code = Light Yellow 470) CLARITY (BEAKER) (test code = Clear 469) SPECIFIC GRAVITY UA (BEAKER) 1.007 1.001-1.035 (test code = 468) PH UA (BEAKER) (test code = 5.0 5.0-8.0 467) PROTEIN UA (BEAKER) (test code 20 mg/dL Negative A = 464) GLUCOSE UA (BEAKER) (test code Negative Negative = 365) KETONES UA (BEAKER) (test code Negative Negative = 371) BILIRUBIN UA (BEAKER) (test Negative Negative code = 462) BLOOD UA (BEAKER) (test code = Negative Negative 461) NITRITE UA (BEAKER) (test code Negative Negative = 465) LEUKOCYTE ESTERASE UA (BEAKER) Negative Negative (test code = 466) UROBILINOGEN UA (BEAKER) (test 0.2 mg/dL 0.2-1.0 code = 463) RBC UA (BEAKER) (test code = 0 /HPF 519) WBC UA (BEAKER) (test code = 1 /HPF 520) MUCUS (BEAKER) (test code = Rare 1574) CALCIUM OXALATE CRYSTALS Occasional (BEAKER) (test code = 518) AMORPHOUS CRYSTALS (BEAKER) Rare (test code = 1584) SOURCE(BEAKER) (test code = Urine, Voided 3205) PROTHROMBIN [id number] 23:08:00 Test Item Value Reference Range Interpretation Comments PROTIME (BEAKER) (test code = 13.1 seconds 11.7-14.7 759) INR (BEAKER) (test code = 370) 1.0 <=5.9 RECOMMENDED COUMADIN/WARFARIN INR THERAPY RANGESSTANDARD DOSE: 2.0 - 3.0 Includes: PROPHYLAXIS forvenous thrombosis, systemic embolization; TREATMENT for venous thrombosis and/or pulmonary embolus.HIGH RISK: Target INR is 2.5-3.5 for patients with mechanical heart valves.RAD, CHEST, 1 VIEW, NON [id number] 21:49:00Post-intubationReason for exam:->coughShould this be performed at [...] unremarkable. Impression: No focal pulmonary consolidation. Signed: Keesha Orellana MDReportVerified Date/Time: 03/03/2018 21:49:20 Reading Location: [address] Reading Room El ectronically signed by: KEESHA ORELLANA MD on 03/03/2018 09:49 PM
--- OUTSIDE RECORDS SUMMARY | 2019-11-03 07:23 | XMS REPORT | Clinical Summary ---
:1980 Author Organization [facility] Address [address] [place] [address] Care Team Providers Name Role Phone Unavailable Primary Care Provider Unavailable Allergies Active Allergy Reactions Severity Noted Date Comments Iodine And Iodide Containing Shortness Of Breath, High 02/12 Products Swelling Medications Medication Sig Dispensed Refills Start Date End Date Status levETIRAcetam (KEPPRA) Take 1 tablet 180 tablet 3 03/04/2018 0 03/04/2019 750 MG tablet (750 mg total) by mouth 2 (two) times daily. Active Problems Problem Noted Date Status epilepticus 03/04/2018 Acute encephalopathy 03/04/2018 Seizure 03/03/2018 Social History Tobacco Use Types Packs/Day Years Used Date Current Every Day Smoker Cigarettes 1 0 Sta rted: 03/03/2018 Smokeless Tobacco: Never Used Tobacco Cessation: Ready to Quit: No; Co unseling Given: Yes Alcohol Use Drinks/Week oz/Week Comments Yes 4 Shots of liquor 2.4 Alcohol Habits Answer Date Recorded How often do you have a drink containing 4 or more times a w table [place] 03/04/2018 alcohol? How many drinks containing alcohol do you have 10 or more 03/04/2018 on a typical day when you are drinking? How often do you have six or more drinks on one Daily or cruz ost daily 03/04/2018 occasion? Sex Assigned at Date Recorded Not on file Job Start Date Occupation Industry Not on file Not on file Not on file Travel History Travel Start Travel End No recent travel history available. Last Filed Vital Signs Not on file Plan of Treatment Not on file Results Not on fileafter 11/02/2018 Insurance Payer Benefit Plan / Subscriber ID Type Phone Address Group BLUE CROSS/BLUE BCBS PPO POS EPO xxxxxxxxxxxx PPO [phone] [address] [place] [address] Advance Directives For more information, please contact:[facility] [place], [place] [phone] Code Status Date Activated Date Inactivated Comments Full Code 03/03/2018 8:39 PM This code status was determined by: Patient
--- OUTSIDE RECORDS SUMMARY | 2019-11-03 07:23 | XMS REPORT | Continuity of Care Document ---
:1980 Author Organization [employer] Care Team Providers Name Role Phone [employer] Information [facility] Unavailable Un available Problems Problem Status Onset Classification Date Comments Sourc e Date Reported COMPLEX Active [facility] RETINAL 5 Medical DETACHMENT Center Retinal Active Problem 07/30/2014 [facility] detachment Medical (disorder) Center Complex Active Problem 11/23/2018 [facility] partial Neuro epileptic seizure (disorder) Headache Active Problem 11/23/2018 [facility] (finding) Neuro DETACHMNT W Active [facility] Medications Medication Details Route Status Patient Ordering Order Source Instructions Provider Date Levetiracetam 500 mg = 1 No Longer Misch er 500 MG Oral tab, PO, Active 019 Neuro Tablet [Keppra] BID, # 60 tab, 3 Refill(s), Pharmacy: [facility]/pharmacy #[id number] Levetiracetam 500 mg = 1 Inactive Mische r 500 MG Oral tab, PO, 019 Neuro Tablet [Keppra] BID, # 60 tab, 0 Refill(s) Naloxone Notes: Same No Longer [facility] as Narcan Active [address] [place] [address] Hydromorphone Notes: Same No Longer [place] as: Dilaudid [address] Ondansetron Notes: (Same No Longer [place] as: Zofran) Active [facility] MEDICATION WASTE Product Size: 4 mg Product Wasted: _0__ mg Promethazine Notes: Do No Longer [place] not give IV Active [facility] push. (Same Center as: Phenergan) Meperidine Notes: (Same No Longer Tha as as: Demerol) Active 015 Medical "Use Center Precaution in Elderly, Seizure disorders, and Renal impairment&q uot; Flumazenil Notes: (Same No Longer Tha as as: Active [address] [place] [address] Romazicon) Center Oxycodone Notes: (Same No Longer [place] Hydrochloride 1 as: Active 015 Medical MG/ML Oral 'Roxicodone) Center Solution tropicamide Notes: (Same Inactive Tha as ophthalmic As: 015 Medical Mydriacyl, Center Opticyl, Tropicacyl) phenylephrine 1 drp, Inactive [facility] ophthalmic 2.5% Route: LEFT 015 Medi nicolette solution EYE, ONCALL, [place] Drug form: SOLN, Start date: 07/27/14 8:00:00, Duration: 1 day, Stop date: 07/28/14 7:59:00 Allergies, Adverse Reactions, Alerts Substance Category Reaction Severity Reaction Status Date Comments S ource type Reported Food Assertion Drug Active Tha as Shellfish allergy Medica l [place] iodine Assertion Drug Active Mische r allergy Neuro Immunizations No Data Provided for This Section Results No Data Provided for This Section Pathology Reports No Data Provided for This Section Diagnostic Reports No Data Provided for This Section Consultation Notes No Data Provided for This Section Discharge Summaries No Data Provided for This Section History and Physicals No Data Provided for This Section Vital Signs Vital Sign Value Date Comments Source Height 177.8 cm 02/14/2018 [facility] Weight 77.273 02/14/2018 [facility] BMI Calculated 24.44 02/14/2018 [facility] Neuro Respitory Rate 16 02/14/2018 [facility] Neuro Heart Rate 72 02/14/2018 [facility] Neuro Systolic (mm Hg) 96 02/14/2018 [facility] Nelson ro Diastolic (mm Hg) 57 02/14/2018 [facility] Ne uro Systolic (mm Hg) 120 07/27/2014 [facility] dical Center Diastolic (mm Hg) 57 07/27/2014 [facility] edical Center Heart Rate 77 07/27/2014 [facility] Medica l Center Respitory Rate 15 07/27/2014 [facility] nicolette Center Respitory Rate 13 07/27/2014 [facility] nicolette Center Systolic (mm Hg) 130 07/27/2014 [facility] dical Center Diastolic (mm Hg) 65 07/27/2014 [facility] edical Center Systolic (mm Hg) 147 07/27/2014 [facility] dical Center Diastolic (mm Hg) 66 07/27/2014 [facility] edical Center Respitory Rate 13 07/27/2014 [facility] nicolette Center Heart Rate 58 07/27/2014 [facility] Weight 81.818 07/15/2014 [facility] BMI Calculated 25.16 07/15/2014 [facility] Height 180.34 cm 07/15/2014 [facility] Encounters Location Location Encounter Encounter Reason Attending ADM DC Stat us Source Details Type Number For Provider Date Date Visit [id number] Monica 07/27 07/28 [facility] [place] [facility] [place] /2014 [facility] Outpatient [id number] [place] 02/14 Active [facility] [place] [facility] Outpatient [id number] [place] 02/14 02/15 [facility] Neurology [facility] [place] Outpatient [id number] [place] 02/18 [facility]patient [id number] [place] 02/18 02/19 [facility] Neurology [facility] /2018 [facility] [place] Outpatient [id number] [place] 04/01 [facility] Outpatient [id number] [place] 07/03 [facility] Ambulatory [id number] [place] 07/03 07/03 [facility] Neurology Pre-Reg [facility] /2018 [facility] [place] [facility] Outside [id number] 11/19 11/21 [facility] Neurology Medical /2018 [facility] [place] Records Procedures Procedure Code Date Perfomer Comments Source Eye operation [id number] [facility] Assessment and Plan Assessment and Plan Date Source Extracted from:Title: Vitreoretinal Surgery operative report 07/28/2014 [facility] Author: Monica Ortiz MD Date: 07/27/14 Patient: Corinne Rees Preoperative diagnosis: 1. retinal detachment with proliferative vitreoretinopathy, left eye Postoperative diagnosis: 1. retinal detachment with proliferative vitreoretinopathy, left eye Procedure: 1. 25 gauge pars plana vitrectomy, silic one oil removal, membrane peel, relaxing retinectomy, endolaser, PFO, air-fluid exchange, silicone oil, surgical peripheral iridotomy, left eye Anesthesia: general Complications: none Blood loss: minimal Surgeon: Monica Ortiz MD Foreclosure Specialist: Tri Murillo MD Indications and history: This [...] eye was prepped and draped in the [facility] sterile fashion for ophthalmic surgery. A lid speculum was used. A 25g system was used. The inferotemporal trochar was placed 3.5 mm posterior to the limbus a nd the infusion port visualized in the v itreous cavity prior to turning it on. Superotemporal and superonasal trochars were similarly placed. A viscous fluid extractor was used to remove the silicone oi l under direct visualization. The cutter was used to open the posterior capsule. A core vitrectomy was then performed and residual hemorrage and fibrinous membranes were trimmed to the periphery. A max- supervisor advertising dispatch clerks forcep was used to peel membranes f rom the nerve to relax the traction. Endocautery was then used to farhan the retina and cauterize vessels, and the cutter was used to make a retinectomy from 4 o&ap os;clock to 11:30. PFO was then used to flatten the retina. An air-fluid exchange was done using a soft tip cannula. Endolaser was applied along the edge of the retinectomy with 3 rows of barricade and surrounding the horns anteriorly. The cu tter was used to make a peripheral iridotomy inferiorly. The eye was filled with 1000cs silicone oil to the level of the posterior capsule. The sclerotomy sites w ere sutured with 7-0 vicryl and found to be watertight. The conjunctiva was closed with 6-0 plain gut. Subconjunctival ancef and decadron were given. The lid speculum was removed. The eye was patched an d shielded. The patient was extubated by the anesthesia team and transferred to PACU in stable condition. I performed all critical portion(s) of the case. Plan of Care No Data Provided for This Section Social History Social History Date Source Social History TypeResponse 04/01/2018 [facility] Smoking Status Current every day smoker; Type: Cigarett es; Exposure to Tobacco Smoke Unable to obtain; Cigarette Smoking Last 365 Days Yes; Reg Smoking Cessation Counseling No entered on: 04/01/18 Social History TypeResponse 07/15/2014 [facility] Smoking Status Former smoker; Type: Cigarettes; Exposur e to Tobacco Smoke None; Cigarette Smoking Last 365 Days No; Reg Smoking Cessation Counseling No1 1quit in 2013 Family History No Data Provided for This Section Advance Directives No Data Provided for This Section Functional Status No Data Provided for This Section
[2019-11-03] MEDS ORDERED: levETIRAcetam 1,000 MG in NA CHLORIDE 0.9% 100 ML IV ONE (07:45)
[2019-11-03] MEDS ORDERED: NA CHLORIDE 0.9% 1,000 ML ONE (07:46)
[2019-11-03] MEDS ORDERED: LORazepam 2 MG/ML VIAL ONE (07:46)
[2019-11-03] MEDS ORDERED: ONDANSETRON 4 MG/2 ML VIAL ONE (07:46)
[2019-11-03 07:58] LABS: Absolute Lymphocytes (CBC) 6.8 K/uL (0.7-4.9); Basophils % 0.8 % (0-1.3); Hematocrit 51.7 % (39.6-49.0); Lymphocytes % 45.3 % (15.3-44.8); MPV 10.2 fL (7.6-11.3); RBC Red Blood Cell Count 5.42 M/uL (4.33-5.43)
[2019-11-03] MEDS ORDERED: MEPERIDINE HCL 50 MG/ML ONE (10:41)
[2019-11-03 11:55] LABS: Blood Morphology Comment NOT SEEN (NOT SEEN); Platelet Estimate ADEQ; White Blood Cell Scan OK (OK)
--- NOTE | 2019-11-03 12:16 | EKG ---
Test Date: 2019-11-03 Test Time: 07:59:02 Former Hand: CRISTIAN MEASUREMENT RESULTS: Intervals: Rate: 101 NH: 116 QRSD: 86 QT: 350 QTc: 453 [place]: P: 75 NH: 116 QRS: 75 T: 24 INTERPRETIVE STATEMENTS: Sinus tachycardia with occasional premature ventricular complexes Otherwise normal ECG Compared to ECG 03/09/2019 18:24:46 Ventricular premature complex(es) now present Sinus rhythm no longer present Sinus arrhythmia no longer present T-wave abnormality no longer present Electronically Signed On 11-03-19 12:15:00 CDT by Anuj Lawrence
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
[2019-11-03 13:07] VITALS: TEMP 97.9
[2019-11-03 13:14] VITALS: BP 118/70; O2SAT 100
== END 2019-11-03 12:58 | disposition home or self-care (01) ==
LOC: ER 07:21
DX: G40.802 Other epilepsy, not intractable, without status epilepticus (principal); Z88.6 Allergy status to analgesic agent; Z91.013 Allergy to seafood; Z91.048 Other nonmedicinal substance allergy status
CPT/HCPCS: 36415; 80048; 85025; 93005; 96361; 96365; 96375; 99284; J1953; J2175; J2405; J7030

== ENCOUNTER 2019-11-29 05:48 | Emergency (ER) | payer SELFPAY ==
--- OUTSIDE RECORDS SUMMARY | 2019-11-29 05:50 | XMS REPORT | Clinical Summary ---
:1980 Author Organization [facility] Address [address] [place] [address] Care Team Providers Name Role Phone Unavailable [...] oz/Week Comments Yes 4 Shots of liquor 4.0 Alcohol Habits Answer Date Recorded How often do you have a drink containing 4 or more times a w [place] 03/04/2018 alcohol? How many drinks containing alcohol do you have 10 or more 03/04/2018 on a typical day when you are drinking? How often do you have six or more drinks on one Daily or [place] daily 03/04/2018 occasion? Sex Assigned at Date Recorded Not on file Last Filed Vital Signs Not on file Plan of Treatment Not on file Results Not on fileafter 11/28/2018 Insurance Payer Benefit Plan / Subscriber ID Effective Dates Phone Addre ss Type Group BLUE BCBS PPO POS [id number] 2017-[place] [phone] [id number] PPO CROSS/BLUE EPO CHOICE t 2 [facility] [id number] Advance Directives For more information, please contact: [phone] Code Status Date Activated Date Inactivated Comments Full Code 03/03/2018 8:39 PM This code status was determined by: Patient
--- OUTSIDE RECORDS SUMMARY | 2019-11-29 05:50 | XMS REPORT | Continuity of Care Document ---
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 [facility] partial Neuro epileptic seizure (disorder) Headache Active Problem 11/23/2018 [facility] (finding) Neuro DETACHMNT W Active [facility] Medications Medication Details Route Status Patient Ordering Order Source Instructions Provider Date Levetiracetam 500 mg = 1 No Longer Misch er 500 MG Oral tab, PO, Active 019 Neuro Tablet [Keppra] BID, # 60 tab, 3 Refill(s), Pharmacy: [facility]/pharmacy #[id number] Levetiracetam 500 mg = 1 Inactive Mische r 500 MG Oral tab, PO, 019 Neuro Tablet [Keppra] BID, # 60 tab, 0 Refill(s) Naloxone Notes: Same No Longer [facility] as Narcan Active [address] [place] [address] Hydromorphone Notes: Same [place] Longer [place] as: Dilaudid [address] Ondansetron Notes: (Same [place] Longer [place]: Zofran) Active [facility] MEDICATION WASTE Product Size: 4 mg Product Wasted: _0__ mg Promethazine Notes: Do No Longer [place] not give IV Active [facility] push. (Same Center as: Phenergan) Meperidine Notes: (Same No Longer [place] as: Demerol) Active 015 [facility] "Use Center Precaution in Elderly, Seizure disorders, and Renal impairment&q uot; Flumazenil Notes: (Same No Longer [place] as: Active [address] [place] [address] Romazicon) Center Oxycodone Notes: (Same No Longer [place] Hydrochloride 1 as: Active 015 [facility] MG/ML Oral 'Roxicodone) Center Solution tropicamide Notes: (Same Inactive [place]a as ophthalmic As: 015 [facility] Mydriacyl, Center Opticyl, Tropicacyl) phenylephrine 1 drp, Inactive [facility] ophthalmic 2.5% Route: LEFT 015 Medi nicolette solution EYE, ONCALL, [facility] Drug form: SOLN, Start date: 07/27/14 8:00:00, Duration: 1 day, Stop date: 07/28/14 7:59:00 Allergies, Adverse Reactions, Alerts Substance Category Reaction Severity Reaction Status Date Comments S ource type Reported Food Assertion Drug Active Tha as Shellfish allergy Medica l [place] iodine Assertion Drug Active Mische r allergy [...] Date Comments Source Height 177.8 cm 02/14/2018 [facility] Weight 77.273 02/14/2018 [facility] BMI Calculated 24.44 02/14/2018 [facility] Respitory Rate 16 02/14/2018 [facility] Heart Rate 72 02/14/2018 [facility] Systolic (mm Hg) 96 02/14/2018 [facility] [place] ro Diastolic (mm Hg) 57 02/14/2018 [facility] Ne uro Systolic (mm Hg) 120 07/27/2014 [facility] dical Center Diastolic (mm Hg) 57 07/27/2014 [facility] edical Center Heart Rate 77 07/27/2014 [facility] Medica l Center Respitory Rate 15 07/27/2014 [facility] nicolette Center Respitory Rate 13 07/27/2014 [facility] nicolette Center Systolic (mm Hg) 130 07/27/2014 [facility] dical Center Diastolic (mm Hg) 65 07/27/2014 [facility] edical Center Systolic (mm Hg) 147 07/27/2014 [facility] dical Center Diastolic (mm Hg) 66 07/27/2014 [facility] edical Center Respitory Rate 13 07/27/2014 [facility] nicolette Center Heart Rate 58 07/27/2014 [facility] Weight 81.818 07/15/2014 [facility] BMI Calculated 25.16 07/15/2014 [facility] Height 180.34 cm 07/15/2014 [facility] Encounters Location Location Encounter Encounter Reason Attending ADM DC Stat us Source Details Type Number For Provider Date Date Visit [id number] Monica 07/27 07/28 [facility] Roddy Surgery Yoav /2014 [facility] Outpatient [id number] [place] 02/14 Active [facility] Outpatient [id number] [place] 02/14 02/15 [facility] Neuro [facility] Outpatient [id number] [place] 02/18 [facility] Outpatient [id number] [place] 02/18 02/19 [facility] Neurology [facility] /2018 Neuro [facility] Outpatient [id number] [place] 04/01 [facility] Roddy Outpatient [id number] [place] 07/03 [facility] Ambulatory [id number] [place] 07/03 07/03 [facility] Neurology Pre-Reg [facility] /2018 Neuro [facility] MNA Outside [id number] 11/19 11/21 [facility] Neurology Medical /2018 Neuro [facility] Records Procedures Procedure Code Date Perfomer Comments Source Eye operation [id number] [facility] Assessment and Plan Assessment and Plan Date Source Extracted from:Title: Vitreoretinal Surgery operative report 07/28/2014 [facility] Author: Monica Ortiz MD Date: 07/27/14 Patient: [...] Blood loss: minimal Surgeon: Monica Ortiz MD Tanker Truck Driver: Tri Murillo MD Indications and history: This [...] eye was prepped and draped in the [facility] sterile fashion for ophthalmic surgery. A lid [...] were trimmed to the periphery. A max- sales operations director forcep was used to peel membranes f [...] entered on: 04/01/18 Social History TypeResponse 07/15/2014 [facility] Smoking Status Former smoker; Type: Cigarettes; Exposur e to Tobacco Smoke None; Cigarette Smoking Last 365 Days No; Reg Smoking Cessation Counseling No1 1quit in 2013 Family History No Data Provided for This Section Advance Directives No Data Provided for This Section Functional Status No Data Provided for This Section
--- OUTSIDE RECORDS SUMMARY | 2019-11-29 05:51 | XMS REPORT | Continuity of Care Document ---
:1980 Author Organization [facility] t Address [address] [place] [address] Care Team Providers Name Role Phone Chris [...] kes - s s 00:00: Medical 00 [place] Acute Acute Disease Active [facility] Fatimah kes - athy athy 00:00: Medical 00 [place] Seizure Seizure Disease Active [facility]: Medical 00 [place] COMPLEX Diagnosis Active 2014-09-14 Me moria RETINAL 3- 07:57:00 l DETACHMENT COMPLEX 00:00: Her fuentes RETINAL 00 DETACHMENT Active 05/06/2014 [facility] Retinal Problem Active 2014-07-30 Joseph logan detachment 00:34:47 l (disorder) 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 07/30/2014 [facility] 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 logan 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) epileptic seizure (disorder) Active Problem 11/23/2018 [facility] Headache Problem Active 2018-11-23 Mem oria (finding) 00:22:41 l Headache Krishan n (finding) Active Problem 11/23/2018 [facility] DETACHMNT Diagnosis Active 2014-09-14 Memoria W DEFECT 07:57:00 l [place]OS [place] DETACHMNT W DEFECT NOS Active [facility] Allergies, Adverse Reactions, Alerts Allergy Allergy Status Severity Reaction(s) Onset Inactive Treating Comm ents Source Name Type Date Date Clinician Iodine Propensi Active [facility] Breath, 03-03 [facility] - Iodide adverse Swelling 00:00: Medical Containi reaction 00 Center ng s Products Food Food Active [facility] Shellfis Shellfis l h h [place] iodine iodine Active [facility] Roddy Social History Social Habit Start Date Stop Date Quantity Comments Source History of tobacco 2018-03-[address] [facility] - use 00:00:00 day smoker [facility] Sex Assigned At [facility] St Fatimah kes - [facility] Cigarettes smoked 2018-03-04 2018-03-[address] [facility] - current (pack per 00:00:00 00:00:00 Medical Center day) - Reported Tobacco use and 2018-03-04 2018-03-[address] [facility] [address] Fatimah kes - exposure 00:00:00 00:00:00 [facility] Alcohol intake 2018-03-04 2018-03-04 [facility] 00:00:00 of alcohol [facility] (finding) History [facility] 2018-03-04 2018-03-[address] [facility] - Alcohol Frequency 00:00:00 00:00:00 Medical Center History [facility] 2018-03-04 2018-03-[address] [facility] - Alcohol Std Drinks 00:00:00 00:00:00 Medica l Center History [facility] 2018-03-04 2018-03-[address] [facility] - Alcohol Binge 00:00:00 00:00:[address] Smoking Status Start Date Stop Date Source Social History 2018-04-01 19:26:54 Pacheco fuentes Social History 2014-07-15 18:42:09 2014-07-15 18:42:09 Pacheco Pereyra Medications Ordered Filled Start Stop Current Ordering [...] MG 1-04 tab, PO, l Oral Tablet 20:26: BID, # 60 H ermann [Keppra] 00 tab, 3 Refill(s), Pharmacy: [id number] Levetiracet No 500 mg = 1 Memoria am 500 MG 1-04 tab, PO, l Oral Tablet 20:05: BID, # 60 H ermann [Keppra] 00 tab, 0 Refill(s) Naloxone No Notes: Memoria 6-16 Same as l 17:30: Narcan Hydromorpho No Notes: Joseph logan ne 07-27 Same as: l 17:30: Dilaudid Ondansetron No Notes: Joseph logan 16 (Same as: l 17:30: Zofran) MEDICATION WASTE Product Size: 4 mg Product Wasted: _0__ mg Promethazin No Notes: Do M emoria e 07-27 not give l 17:30: IV push. (Same as: Phenergan) Meperidine No Notes: Memor ia -16 (Same as: l 17:30: Demerol) "Use Precaution in Elderly, Seizure disorders, and Renal impairment " Flumazenil No Notes: Memor ia -16 (Same as: l 17:30: Romazicon) Oxycodone No Notes: Memori a Hydrochlori 07-27 (Same as: l de 1 MG/ML 17:30: 'Roxicodon H ermann Oral 00 e) Solution tropicamide No Notes: Joseph logan ophthalmic -16 (Same As: l 13:00: Mydriacyl, Roddy 00 Opticyl, Tropicacyl ) phenylephri No 1 drp, Joseph logan ne 16 Route: l ophthalmic 13:00: LEFT EYE, He rmann 2.5% 00 ONCALL, solution Drug form: SOLN, Start date: 07/27/14 8:00:00, Duration: 1 day, Stop date: 07/28/14 7:59:00 Vital Signs Vital Name Observation Time Observation Value Comments Source Height 2018-02-14 20:01:00 177.8 cm [facility] [place] Weight 2018-02-14 20:01:00 [facility] [place] BMI Calculated 2018-02-14 20:01:00 [facility] [place] Respitory Rate 2018-02-14 20:01:00 [facility] [place] Heart Rate 2018-02-14 20:01:00 [facility] [place] Systolic (mm Hg) 2018-02-14 20:01:00 Joseph rial [place] Diastolic (mm Hg) 2018-02-14 20:01:00 Mem orial [place] Systolic (mm Hg) 2014-07-27 18:35:00 Joseph rial [place] Diastolic (mm Hg) 2014-07-27 18:35:00 Mem orial [place] Heart Rate 2014-07-27 18:35:00 [facility] [place] Respitory Rate 2014-07-27 18:35:00 Memori al [place] Respitory Rate 2014-07-27 18:15:00 Memori [facility] [place] Systolic (mm Hg) 2014-07-27 18:15:00 Joseph rial [place] Diastolic (mm Hg) 2014-07-27 18:15:00 Mem orial [place] Systolic (mm Hg) 2014-07-27 18:00:00 Joseph rial [place] Diastolic (mm Hg) 2014-07-27 18:00:00 Mem orial [place] Respitory Rate 2014-07-27 18:00:00 [facility] [place] Heart Rate 2014-07-27 12:13:00 [facility] [place] Weight 2014-07-15 18:40:00 [facility] [place] BMI Calculated 2014-07-15 18:40:00 [facility] [place] Height 2014-07-15 18:40:00 180.34 cm [facility] [place] Procedures Procedure Date / Time Performed Performing Clinician [facility] Encounters Start End Encounter Admission Attending Care Care Encounter Source Date/Time Date/Time Type Type Clinicians Facility Department ID 2018-11-19 2018-11-20 [id number] 17:00:05 23:59:59 00 2018-07-03 2018-07-03 Outpatient KERRY Yanez [facility] [id number] 13:15:00 13:15:00 Per 03 Chris 2018-02-18 2018-02-18 [id number] 15:00:00 23:59:59 Per Chris 2018-02-14 2018-02-14 [id number] 14:00:00 23:59:59 Per 00 Chris 2014-07-27 2014-07-27 Outpatient NIKO Ortiz LUZMARIA [id number] 06:30:00 23:59:00 Monica 00 Results Test Description [...] = 375) Reference Range: No NormalsSODIUM, RANDOM [id number] 11:40:00 Test Item Value Reference Range Interpretation Comments SODIUM URINE (BEAKER) (test code = 39 meq/L 243) Reference Range: No NormalsCOMPREHENSIVE METABOLIC [id number] 07:31:00 Test Item Value Reference Range Interpretation [...] S NOT APPLICABLE FOR DIALYSIS PATIEN TS. [id number] 06:17:00 Test Item Value Reference Range Interpretation Comments SODIUM (BEAKER) (test code = 381) 139 meq/L 136-145 POTASSIUM (BEAKER) (test code = 3.8 meq/L 3.5-5.1 379) CHLORIDE (BEAKER) (test code = 382) 109 meq/L 98-107 H CO2 (BEAKER) (test code = 355) 22 meq/L 22-29 URINALYSIS W/ [id number] 01:17:00 Test Item Value Reference Range Interpretation [...] 1584) SOURCE(BEAKER) (test code = Urine, Voided 2795) PROTHROMBIN [id number] 23:08:00 Test Item Value Reference Range Interpretation Comments PROTIME (BEAKER) (test code = 13.1 seconds 11.7-14.7 759) INR (BEAKER) (test code = 370) 1.0 <=5.9 RECOMMENDED COUMADIN/WARFARIN INR THERAPY RANGESSTANDARD DOSE: 2.0 - 3.0 Includes: PROPHYLAXIS forvenous thrombosis, systemic embolization; TREATMENT for venous thrombosis and/or pulmonary embolus.HIGH RISK: Target INR is 2.5-3.5 for patients with mechanical heart valves.RAD, CHEST, 1 VIEW, NON [id number] 21:49:00Post-intubationReason for exam:->coughShould this be performed at [...] Orellana MDReportVerified Date/Time: 03/03/2018 21:49:20 Reading Location: [address] Reading Room El ectronically signed by: KEESHA ORELLANA MD on 03/03/2018 09:49 PM
[2019-11-29] MEDS ORDERED: LORazepam 2 MG/ML VIAL ONE (06:19)
[2019-11-29] MEDS ORDERED: LEVETIRACETAM 500 MG/5 ML VIAL IV ONE (06:23)
[2019-11-29] MEDS ORDERED: NA CHLORIDE 0.9% 1,000 ML ONE ×2 (06:23→08:17)
[2019-11-29 06:33] LABS: Absolute Lymphocytes (CBC) 5.7 K/uL (0.7-4.9); Basophils % 0.6 % (0-1.3); Hematocrit 48.6 % (39.6-49.0); Lymphocytes % 38.1 % (15.3-44.8); MPV 10.9 fL (7.6-11.3); RBC Red Blood Cell Count 5.15 M/uL (4.33-5.43)
[2019-11-29 06:36] LABS: Protime INR 0.91
[2019-11-29 06:38] LABS: ALT/SGPT 27 U/L (12-78); AST/SGOT 23 U/L (15-37); Albumin 4.1 g/dL (3.4-5.0); Alkaline Phosphatase 79 U/L (45-117); BUN Blood Urea Nitrogen 16 mg/dL (7-18); Bicarbonate 15 mmol/L (21-32); Bilirubin Direct < 0.1 mg/dL (0-0.2); Bilirubin Total 0.2 mg/dL (0.2-1.0); Glucose Level 191 mg/dL (74-106); Potassium 4.1 mmol/L (3.5-5.1); Protein, Total 7.5 g/dL (6.4-8.2); Sodium Level 138 mmol/L (136-145)
[2019-11-29 06:41] LABS: Barbiturates NEGATIVE (NEGATIVE); Benzodiazepines NEGATIVE (NEGATIVE); Cocaine NEGATIVE (NEGATIVE); METHAMPHETAM NEGATIVE (NEGATIVE); Methadone NEGATIVE (NEGATIVE); Opiates NEGATIVE (NEGATIVE); Phencyclidine NEGATIVE (NEGATIVE); THC Cannibis POSITIVE (NEGATIVE)
[2019-11-29 06:42] LABS: Urine Blood 2+ (NEG); Urine Glucose NEGATIVE (NEG); Urine Protein 2+ (NEG)
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
--- NOTE | 2019-11-29 11:38 | RAD REPORT ---
EXAM DESCRIPTION: RAD - Chest Single View - 11/29/2019 8:20 am CLINICAL HISTORY: COUGH Chest pain. COMPARISON: Chest Single View dated 03/10/2019; Chest Single View dated 03/09/2019; Chest Single View dated 02/03/2019; Chest Single View dated 11/16/2018 FINDINGS: Portable technique limits examination quality. The lungs appear underinflated resulting in vascular crowding. Hazy right base is noted which is pote ntially soft tissue artifact although a small infiltrate in this region can't be ruled out. The heart is normal in size.
[2019-11-29 12:51] VITALS: TEMP 98.2
[2019-11-29 12:58] VITALS: O2SAT 100
[2019-11-29 12:59] VITALS: BP 123/81
== END 2019-11-29 12:17 | disposition home or self-care (01) ==
LOC: ER 05:48
DX: G40.802 Other epilepsy, not intractable, without status epilepticus (principal); F17.210 Nicotine dependence, cigarettes, uncomplicated; Z88.6 Allergy status to analgesic agent; Z91.013 Allergy to seafood; Z91.048 Other nonmedicinal substance allergy status
CPT/HCPCS: 36415; 70450; 71045; 72125; 80048; 80076; 80307; 80320; 80329; 81003; 85025; 85610; 85730; 93005; 96374; 96375; 99284; J1953; J7030; J7040

== ENCOUNTER 2020-01-11 03:52 | Emergency (ER) | payer SELFPAY ==
--- OUTSIDE RECORDS SUMMARY | 2020-01-11 03:54 | XMS REPORT | Continuity of Care Document ---
:1980 Author Organization [employer] Care Team Providers Name Role Phone That{img} Information Ze-gen Unavailable Un available Problems Problem Status Onset Classification Date Comments Sourc e Date Reported COMPLEX Active [facility] RETINAL 5 Medical DETACHMENT Center Retinal Active Problem 07/30/2014 [facility] detachment Medical (disorder) Center Complex Active Problem 11/23/2018 [facility] partial Neuro epileptic seizure (disorder) Headache Active Problem 11/23/2018 [facility] (finding) Neuro DETACHMNT W Active [facility] Medications Medication Details Route Status Patient Ordering [...] 0 Refill(s) Naloxone Notes: Same No Longer [facility] as Narcan Active [address] [place] [address] Hydromorphone Notes: Same [place] Longer [place] as: Dilaudid [address] Ondansetron Notes: (Same [place] Long[place]: Zofran) Active [facility] MEDICATION WASTE Product Size: 4 mg Product Wasted: _0__ mg Promethazine Notes: Do No Longer [place] not give IV Active [facility] push. (Same Center as: Phenergan) Meperidine Notes: (Same No Longer Tha as as: Demerol) Active 015 Medical "Use Center Precaution in Elderly, Seizure disorders, and Renal impairment&q uot; Flumazenil Notes: (Same No Longer Tha as as: Active [address] [place] [address] Romazicon) Center Oxycodone Notes: (Same No Longer [place] Hydrochloride 1 as: Active 015 Medical MG/ML Oral 'Roxicodone) Center Solution tropicamide Notes: (Same Inactive Tha as ophthalmic As: 015 Medical Mydriacyl, Center Opticyl, Tropicacyl) phenylephrine 1 drp, Inactive [facility] ophthalmic 2.5% Route: LEFT 015 Medi nicolette solution EYE, ONCALL, [facility] form: SOLN, Start date: 07/27/14 8:00:00, Duration: 1 day, Stop date: 07/28/14 7:59:00 Allergies, Adverse Reactions, Alerts Substance Category Reaction Severity Reaction Status Date Comments S ource type Reported Food Assertion Drug Active Tha as Shellfish allergy Medica l [place] iodine Assertion Drug Active Mische r allergy [...] Date Comments Source Height 177.8 cm 02/14/2018 [facility] Weight 77.273 02/14/2018 [facility] BMI Calculated 24.44 02/14/2018 [facility] Respitory Rate 16 02/14/2018 [facility] Heart Rate 72 02/14/2018 [facility] Systolic (mm Hg) 96 02/14/2018 [facility] [place] ro Diastolic (mm Hg) 57 02/14/2018 [facility] [place] uro Systolic (mm Hg) 120 07/27/2014 [facility] dical Center Diastolic (mm Hg) 57 07/27/2014 [facility] edical Center Heart Rate 77 07/27/2014 [facility] Medica l Center Respitory Rate 15 07/27/2014 [facility] nicolette Center Respitory Rate 13 07/27/2014 [facility] nicolette Center Systolic (mm Hg) 130 07/27/2014 [facility] dical Center Diastolic (mm Hg) 65 07/27/2014 [facility] edical Center Systolic (mm Hg) 147 07/27/2014 [facility] dical Center Diastolic (mm Hg) 66 07/27/2014 [facility] edical Center Respitory Rate 13 07/27/2014 [facility] nicolette Center Heart Rate 58 07/27/2014 [facility] Weight 81.818 07/15/2014 [facility] BMI Calculated 25.16 07/15/2014 [facility] Height 180.34 cm 07/15/2014 [facility] Encounters Location Location Encounter Encounter Reason Attending ADM DC Stat us Source Details Type Number For Provider Date Date Visit [id number] Monica 07/27 07/28 [facility] Surgery Yoav /2014 [facility] Outpatient [id number] [place] 02/14 Active [facility] [id number] [place] 02/14 02/15 [facility] [place] Out[facility] [id number] HAROON 02/18 [facility] Outpatient [id number] [place] 02/18 02/19 [facility] /2018 Neuro [place] Outpatient [id number] HAROON 04/01 [facility] Outpatient [id number] [place]ON 07/03 [facility] Ambulatory [id number] [place] 07/03 07/03 [facility] Pre[facility]Reg [facility] /2018 Neuro [place] [facility] Outside [id number] 11/19 11/21 [facility] Neurology Medical /2018 Neuro [place] Records Procedures Procedure Code Date Perfomer Comments Source Eye operation [id number] [facility] Assessment and Plan Assessment and Plan Date Source Extracted from:Title: Vitreoretinal Surgery operative report 07/28/2014 [facility] Author: Monica Ortiz MD Date: 07/27/14 Patient: [...] Blood loss: minimal Surgeon: Monica Ortiz MD Delivery Rep: Tri Murillo MD Indications and history: This [...] eye was prepped and draped in the [facility] sterile fashion for ophthalmic surgery. A lid [...] were trimmed to the periphery. A max- cargoman forcep was used to peel membranes f [...] entered on: 04/01/18 Social History TypeResponse 07/15/2014 [facility] Smoking Status Former smoker; Type: Cigarettes; Exposur e to Tobacco Smoke None; Cigarette Smoking Last 365 Days No; Reg Smoking Cessation Counseling No1 1quit in 2013 Family History No Data Provided for This Section Advance Directives No Data Provided for This Section Functional Status No Data Provided for This Section
--- OUTSIDE RECORDS SUMMARY | 2020-01-11 03:54 | XMS REPORT | Continuity of Care Document ---
:1980 Author Organization [facility] t Address [address] [place] [address] Care Team Providers Name Role Phone Chris [...] kes - s s 00:00: Medical 00 [place] Acute Acute Disease Active [facility] Fatimah kes - athy athy 00:00: Medical 00 [place] Seizure Seizure Disease Active [facility] 00:[facility]: Medical 00 [place] COMPLEX Diagnosis Active 2014-09-14 Me moria RETINAL 3- 07:57:00 l DETACHMENT COMPLEX 00:00: Her fuentes RETINAL 00 DETACHMENT Active 05/06/2014 [facility] Retinal Problem Active 2014-07-30 Joseph logan detachment 00:34:47 l (disorder) 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 07/30/2014 [facility] 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 logan 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) epileptic seizure (disorder) Active Problem 11/23/2018 [facility] Headache Problem Active 2018-11-23 Mem oria (finding) 00:22:41 l Headache Krishan n (finding) Active Problem 11/23/2018 [facility] Neuro DETACHMNT Diagnosis Active 2014-09-14 Memoria W DEFECT 07:57:00 l NOS [place] DETACHMNT W DEFECT NOS Active [facility] Allergies, Adverse Reactions, Alerts Allergy Allergy Status Severity Reaction(s) Onset Inactive Treating Comm ents Source Name Type Date Date Clinician Iodine Propensi Active [facility] Breath, 03-03 [facility] - Iodide adverse Swelling 00:00: Medical Containi reaction 00 Center ng s Products Food Food Active Memsami Shellfis Shellfis l [facility] iodine iodine Active [facility] estella TorresFord Social History Social Habit Start Date Stop Date Quantity Comments Source History of tobacco 2018-03-[address] [facility] - use 00:00:00 day smoker [facility] Sex Assigned [facility] Fatimah kes - [facility] Cigarettes smoked 2018-03-04 2018-03-[address] [facility] - current (pack per 00:00:00 00:00:00 Medical Center day) - Reported Tobacco use and 2018-03-04 2018-03-[address] [facility] Fatimah kes - exposure 00:00:00 00:00:00 [facility] Alcohol intake 2018-03-04 2018-03-04 [facility] 00:00:00 of alcohol [facility] (finding) History [facility] 2018-03-04 2018-03-[address] [facility] - Alcohol Frequency 00:00:00 00:00:00 Medical Center History [facility] 2018-03-04 2018-03-[address] [facility] - Alcohol Std Drinks 00:00:00 00:00:00 Medica l Center History [facility] 2018-03-04 2018-03-[address] [facility] - [...] ermann [Keppra] 00 tab, 3 Refill(s), Pharmacy: [facility] #[id number] Levetiracet No 500 mg = 1 Memoria [...] l de 1 MG/ML 17:30: 'Roxicodon H erm Oral 00 e) Solution tropicamide No Notes: Joseph logan ophthalmic -16 (Same As: l 13:00: Mydriacyl, [place] 00 Opticyl, Tropicacyl ) phenylephri No 1 drp, Joseph logan ne 16 Route: l ophthalmic 13:00: LEFT EYE, He rmann 2.5% 00 ONCALL, solution Drug form: SOLN, Start date: 07/27/14 8:00:00, Duration: 1 day, Stop date: 07/28/14 7:59:00 Vital Signs Vital Name Observation Time Observation Value Comments Source Height 2018-02-14 20:01:00 177.8 cm [facility] Weight 2018-02-14 20:01:00 [facility] BMI Calculated 2018-02-14 20:01:00 [facility] Respitory Rate 2018-02-14 20:01:00 [facility] Heart Rate 2018-02-14 20:01:00 [facility] Systolic (mm Hg) 2018-02-14 20:01:00 Joseph rial [facility] Diastolic (mm Hg) 2018-02-14 20:01:00 Mem orial [place] Systolic (mm Hg) 2014-07-27 18:35:00 Joseph rial [place] Diastolic (mm Hg) 2014-07-27 18:35:00 Mem orial [facility] Heart Rate 2014-07-27 18:35:00 [facility] Respitory Rate 2014-07-27 18:35:00 Memori al [facility] Respitory Rate 2014-07-27 18:15:00 Memori [facility] Systolic (mm Hg) 2014-07-27 18:15:00 Joseph rial [place] Diastolic (mm Hg) 2014-07-27 18:15:00 Mem orial [place] Systolic (mm Hg) 2014-07-27 18:00:00 Joseph rial [place] Diastolic (mm Hg) 2014-07-27 18:00:00 Mem orial [place] Respitory Rate 2014-07-27 18:00:00 [facility] Heart Rate 2014-07-27 12:13:00 [facility] Weight 2014-07-15 18:40:00 [facility] BMI Calculated 2014-07-15 18:40:00 [facility] Height 2014-07-15 18:40:00 180.34 cm [facility] Procedures Procedure Date / Time Performed Performing Clinician [facility] e Eye operation [facility] Plan of Care Planned Activity Planned Date Details Comments Source Future Scheduled 2019-10-13 INFLUENZA VACCINE (#1) [facility] 00:00:00 [code = INFLUENZA Medical Ce nter VACCINE (#1)] Future Scheduled 2016-02-[address] [facility] Test 00:00:00 (procedure) [code = Medical Center [id number]] Future Scheduled [address] [facility] - Test 00:00:00 0-64 YRS (1 of 1 - Medical C enter PPSV23) [code = PNEUMOCOCCAL VACCINE 0-64 YRS (1 of 1 - PPSV23)] Encounters Start End Encounter Admission Attending Care Care Encounter Source Date/Time Date/Time Type Type Clinicians Facility Department ID 2018-11-19 2018-11-20 Outpatient [facility] [id number] 17:00:05 23:59:59 00 2018-07-03 2018-07-03 Outpatient Beau [facility] [id number] 13:15:00 13:15:00 Per 03 Chris 2018-02-18 2018-02-18 Outpatient Beau [facility] [id number] 15:00:00 23:59:59 Per 01 Chris 2018-02-14 2018-02-14 [id number] 14:00:00 23:59:59 Per 00 Chris 2014-07-27 2014-07-27 Outpatient NIKO Ortiz [facility] [id number] 06:30:00 23:59:00 Monica 00 Results Test Description [...] = 375) Reference Range: No NormalsSODIUM, RANDOM [id number] 11:40:00 Test Item Value Reference Range Interpretation Comments SODIUM URINE (BEAKER) (test code = 39 meq/L 243) Reference Range: No NormalsCOMPREHENSIVE METABOLIC [id number] 07:31:00 Test Item Value Reference Range Interpretation [...] S NOT APPLICABLE FOR DIALYSIS PATIEN TS. [id number] 06:17:00 Test Item Value Reference Range Interpretation Comments SODIUM (BEAKER) (test code = 381) 139 meq/L 136-145 POTASSIUM (BEAKER) (test code = 3.8 meq/L 3.5-5.1 379) CHLORIDE (BEAKER) (test code = 382) 109 meq/L 98-107 H CO2 (BEAKER) (test code = 355) 22 meq/L 22-29 URINALYSIS W/ [id number] 01:17:00 Test Item Value Reference Range Interpretation [...] 1584) SOURCE(BEAKER) (test code = Urine, Voided 8812) PROTHROMBIN [id number] 23:08:00 Test Item Value Reference Range Interpretation Comments PROTIME (BEAKER) (test code = 13.1 seconds 11.7-14.7 759) INR (BEAKER) (test code = 370) 1.0 <=5.9 RECOMMENDED COUMADIN/WARFARIN INR THERAPY RANGESSTANDARD DOSE: 2.0 - 3.0 Includes: PROPHYLAXIS forvenous thrombosis, systemic embolization; TREATMENT for venous thrombosis and/or pulmonary embolus.HIGH RISK: Target INR is 2.5-3.5 for patients with mechanical heart valves.RAD, CHEST, 1 VIEW, NON [id number] 21:49:00Post-intubationReason for exam:->coughShould this be performed at [...] Orellana MDReportVerified Date/Time: 03/03/2018 21:49:20 Reading Location: [address] Reading Room El ectronically signed by: KEESHA ORELLANA MD on 03/03/2018 09:49 PM
--- OUTSIDE RECORDS SUMMARY | 2020-01-11 03:54 | XMS REPORT | Clinical Summary ---
:1980 Author Organization [facility] Address [address] [place] [address] Care Team Providers Name Role Phone Unavailable [...] containing 4 or more times a w [place] 03/04/2018 alcohol? How many drinks containing alcohol do you have 10 or more 03/04/2018 on a typical day when you are drinking? How often do you have six or more drinks on one Daily or cruz ost daily 03/04/2018 occasion? Sex Assigned at Date Recorded Not on file Last Filed Vital Signs Not on file Plan of Treatment Health Maintenance Due Date Last Done Comments PNEUMOCOCCAL VACCINE 0-64 YRS (1 of 1 - PPSV23) 1987 LIPID PANEL 02/16/2016 INFLUENZA VACCINE (#1) 2019 Results Not on fileafter 01/10/2019 Insurance Payer Benefit Plan / Subscriber ID Effective Dates Phone Addre ss Type Group BLUE BCBS PPO POS [id number] 2017-[employer] [phone] [id number] PPO CROSS/BLUE EPO CHOICE t 2 [facility] [id number] Advance Directives For more information, please contact: [phone] Code Status Date Activated Date Inactivated Comments Full Code 03/03/2018 8:39 PM This code status was determined by: Patient
[2020-01-11] MEDS ORDERED: NA CHLORIDE 0.9% 1,000 ML ONE (04:14)
[2020-01-11] MEDS ORDERED: NA CHLORIDE 0.9% 100 ML ONE (04:14)
[2020-01-11] MEDS ORDERED: LEVETIRACETAM 500 MG/5 ML VIAL IV ONE (04:14)
[2020-01-11 04:18] LABS: Absolute Lymphocytes (CBC) 9.7 K/uL (0.7-4.9); Basophils % 0.8 % (0-1.3); Lymphocytes % 55.4 % (15.3-44.8); MPV 11.4 fL (7.6-11.3); RBC Red Blood Cell Count 5.29 M/uL (4.33-5.43)
[2020-01-11] MEDS ORDERED: LORazepam 2 MG/ML VIAL ONE (04:22)
[2020-01-11 04:36] LABS: Albumin 4.8 g/dL (3.4-5.0); Bilirubin Total 0.3 mg/dL (0.2-1.0); Potassium 3.9 mmol/L (3.5-5.1); Protein, Total 8.2 g/dL (6.4-8.2)
[2020-01-11 05:31] LABS: Blood Morphology Comment NOTED (NOT SEEN); Burr Cells 1+; Platelet Estimate ADEQ
[2020-01-11] MEDS ORDERED: SODIUM BICARB 50 MEQ/50ML VIAL ONE (05:49)
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
[2020-01-11 10:45] VITALS: TEMP 97.6
[2020-01-11 10:52] VITALS: O2SAT 98
[2020-01-11 10:58] VITALS: BP 117/85
--- NOTE | 2020-01-13 06:13 | EKG ---
Test Date: 2020-01-11 Test Time: 03:51:20 Sports Psychologist: SWG MEASUREMENT RESULTS: Intervals: Rate: 103 IN: 120 QRSD: 90 QT: 362 QTc: 474 [place]: P: IN: 120 QRS: 123 T: 122 INTERPRETIVE STATEMENTS: Sinus tachycardia Left posterior fascicular block Abnormal ECG Compared to ECG 11/29/2019 06:31:58 Left posterior fascicular block now present ST (T wave) deviation no longer present Electronically Signed On 01-13-20 06:10:06 CREDIT COLLECTIONS CLERK by Anuj Lawrence
== END 2020-01-11 10:34 | disposition home or self-care (01) ==
LOC: ER 03:52
DX: G40.802 Other epilepsy, not intractable, without status epilepticus (principal); Z88.6 Allergy status to analgesic agent; Z91.013 Allergy to seafood; Z91.048 Other nonmedicinal substance allergy status
CPT/HCPCS: 36415; 80053; 85025; 93005; 96365; 96366; 96375; 99285; J1953; J7030

== ENCOUNTER 2020-03-03 16:46 | Emergency (ER) | payer SELFPAY ==
--- OUTSIDE RECORDS SUMMARY | 2020-03-03 16:48 | XMS REPORT | Clinical Summary ---
:1980 Author Organization [facility] Address [address] [place] [address] Care Team Providers Name Role Phone Unavailable Primary Care Provider Unavailable Allergies Not on File Medications Not on file Active Problems Not on file Social History Tobacco Use Types Packs/Day Years Used Date Never Assessed Sex Assigned at Date Recorded Not on file Last Filed Vital Signs Not on file Plan of Treatment Health Maintenance Due Date Last Done Comments IMM Influenza Seasonal Nov to April (>/= 19 yrs) 11/12/2019 Results Not on fileafter 03/03/2019 Insurance Payer Benefit Plan / Subscriber ID Effective Dates Phone Addre ss Type Group [employer] SELF-PAY [id number] 2014-Prese [phone] [id number]ELF-PAY [address] [place] [address]
--- OUTSIDE RECORDS SUMMARY | 2020-03-03 16:48 | XMS REPORT | Clinical Summary ---
:1980 Author Organization [facility] Address [address] [place] [address] Care Team Providers Name Role Phone Unavailable [...] containing 4 or more times a w alutiiq 03/04/2018 alcohol? How many drinks containing alcohol [...] VACCINE (#1) 2019 Results Not on fileafter 03/03/2019 Insurance Payer Benefit Plan / Subscriber ID Effective Dates Phone Addre ss Type Group BLUE BCBS PPO POS [id number] 2017-[place] [phone] [id number] PPO CROSS/BLUE EPO CHOICE t 2 [facility] [id number] Advance Directives For more information, please contact: [phone] Code Status Date Activated Date Inactivated Comments Full Code 03/03/2018 8:39 PM This code status was determined by: Patient
--- OUTSIDE RECORDS SUMMARY | 2020-03-03 16:49 | XMS REPORT | Continuity of Care Document ---
:1980 Author Organization [facility] t Address [address] [place] [address] Care Team Providers Name Role Phone Chris Yanez Attending Clinician LYN JOSEPH Attending Clinician Unavail able Angel Attending Clinician LYN JOSEPH Admitting Clinician Unavail able Angel Admitting Clinician Problems Condition Condition Condition Status Onset Resolution Last Treating Co mments Source Name Details Category Date Date Treatment Clinician Date Status Status Disease Active [facility] epilepticu 03-04 Fatimah kes - s s 00:00: Medical 00 Robbins Acute Acute Disease Active [facility] encephalop encephalop 03-04 Fatimah kes - athy athy 00:00: Medical 00 Robbins Seizure Seizure Disease Active [facility] 00:[facility]: Medical 00 Robbins COMPLEX Diagnosis Active 2014-09-14 Me moria RETINAL 05-06 07:57:00 l DETACHMENT COMPLEX 00:00: Her fuentes RETINAL 00 DETACHMENT Active 05/06/2014 [facility] Retinal Problem Active 2014-07-30 Joseph logan detachment 00:34:47 l (disorder) 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 07/30/2014 [facility] 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) epileptic seizure (disorder) Active Problem 11/23/2018 [facility] Headache Problem Active 2018-11-23 Mem oria (finding) 00:22:41 l Headache Krishan n (finding) Active Problem 11/23/2018 [facility] DETACHMNT Diagnosis Active 2014-09-14 Memoria W DEFECT 07:57:00 l NOS Slemp DETACHMNT W DEFECT NOS Active [facility] Allergies, Adverse Reactions, Alerts Allergy Allergy Status Severity Reaction(s) Onset Inactive Treating Comm ents Source Name Type Date Date Clinician Iodine Propensi Active [facility] Breath[facility] - Iodide adverse Swelling 00:00: Medical Containi reaction 00 Center ng s Products Food Food Active [facility] Shellfis Shellfis l [facility] Roddy [facility] Social History Social Habit Start Date Stop Date Quantity Comments Source History of tobacco 2018-03-[address] [facility] - use 00:00:00 day smoker [facility] Cigarettes smoked 2018-03-04 2018-03-[address] [facility] - current (pack per 00:00:00 00:00:00 [facility] Center day) - Reported Tobacco use and 2018-03-04 2018-03-[address] [facility] [address] Fatimah kes - exposure 00:00:00 00:00:00 [facility] Center Alcohol intake 2018-03-04 2018-03-04 [facility] 00:[facility] 00:00:00 of alcohol [facility] (finding) History [facility] 2018-03-04 2018-03-[address] [facility] - Alcohol Frequency 00:00:00 00:00:00 Medical Center History [facility] 2018-03-04 2018-03-[address] [facility] - Alcohol Std Drinks 00:00:00 00:00:00 Medica l Center History [facility] 2018-03-04 2018-03-[address] [facility] - Alcohol Binge 00:00:00 00:00:[address] Smoking Status Start Date Stop Date Source Social History 2018-04-01 19:26:54 Pacheco fuentes Social History 2014-07-15 18:42:09 2014-07-15 18:42:[facility] Ordered Filled Start Stop Current Ordering [...] ermann [Keppra] 00 tab, 3 Refill(s), Pharmacy: [id number] Levetiracet No 500 mg = 1 Memoria [...] Solution tropicamide No Notes: Joseph logan ophthalmic 07-27 (Same As: l 13:00: Mydriacyl, Roddy 00 Opticyl, Tropicacyl ) phenylephri No 1 drp, Joseph logan ne 07-27 Route: l ophthalmic 13:00: LEFT EYE, He rmann 2.5% 00 ONCALL, solution Drug form: SOLN, Start date: 07/27/14 8:00:00, Duration: 1 day, Stop date: 07/28/14 7:59:00 Vital Signs Vital Name Observation Time Observation Value Comments Source Height 2018-02-14 20:01:00 177.8 cm [facility] Weight 2018-02-14 20:01:00 [facility] BMI Calculated 2018-02-14 20:01:00 Memori al Slemp Respitory Rate 2018-02-14 20:01:00 Memori al Slemp Heart Rate 2018-02-14 20:01:00 [facility] Slemp Systolic (mm Hg) 2018-02-14 20:01:00 Joseph rial Slemp Diastolic (mm Hg) 2018-02-14 20:01:00 Mem orial Roddy Systolic (mm Hg) 2014-07-27 18:35:00 Joseph rial Roddy Diastolic (mm Hg) 2014-07-27 18:35:00 Mem orial Roddy Heart Rate 2014-07-27 18:35:00 Memorial Slemp Respitory Rate 2014-07-27 18:35:00 Memori al Roddy Respitory Rate 2014-07-27 18:15:00 Memori al Roddy Systolic (mm Hg) 2014-07-27 18:15:00 Joseph rial Roddy Diastolic (mm Hg) 2014-07-27 18:15:00 Mem orial Roddy Systolic (mm Hg) 2014-07-27 18:00:00 Joseph rial Slemp Diastolic (mm Hg) 2014-07-27 18:00:00 Mem orial Roddy Respitory Rate 2014-07-27 18:00:00 Memori al Slemp Heart Rate 2014-07-27 12:13:00 [facility] Roddy Weight 2014-07-15 18:40:00 [facility] BMI Calculated 2014-07-15 18:40:00 Memori al Slemp Height 2014-07-15 18:40:00 180.34 cm [facility] Procedures Procedure Date / Time Performed Performing Clinician Darlene e Eye operation [facility] Plan of Care Planned Activity Planned Date Details Comments Source Future Scheduled 2019-11-12 IMM Influenza Seasonal [facility] Test 00:00:00 Nov to April (>/= 19 yrs) [code = IMM Influenza Seasonal Nov to April (>/= 19 yrs)] Future Scheduled 2019-10-13 INFLUENZA VACCINE (#1) [facility] Test 00:00:00 [code = INFLUENZA Medical Ce nter VACCINE (#1)] Future Scheduled 2016-02-[address] [facility] - Test 00:00:00 (procedure) [code = Medical Center [id number]] Future Scheduled [address] [facility] - Test 00:00:00 0-64 YRS (1 of 1 - Medical C enter PPSV23) [code = PNEUMOCOCCAL VACCINE 0-64 YRS (1 of 1 - PPSV23)] Encounters Start End Encounter Admission Attending Care Care Encounter Source Date/Time Date/Time Type Type Clinicians Facility Department ID 2018-11-19 2018-11-20 [id number] 17:00:05 23:59:59 00 2018-07-03 2018-07-03 [facility] [id number] 13:15:00 13:15:00 Per 03 Chris 2018-02-18 2018-02-18 Outpatient MADELYN [facility] [id number] 15:00:00 23:59:59 Per Chris 2018-02-14 2018-02-14 [facility] [id number] 14:00:00 23:59:59 Per 00 Chris 2014-07-27 2014-07-27 Outpatient NIKO Ortiz LUZMARIA [id number] 06:30:00 23:59:00 Monica 00 Results Test Description [...] = 375) Reference Range: No NormalsSODIUM, RANDOM [id number] 11:40:00 Test Item Value Reference Range Interpretation Comments SODIUM URINE (BEAKER) (test code = 39 meq/L 243) Reference Range: No NormalsCOMPREHENSIVE METABOLIC [id number] 07:31:00 Test Item Value Reference Range Interpretation [...] S NOT APPLICABLE FOR DIALYSIS PATIEN TS. [id number] 06:17:00 Test Item Value Reference Range Interpretation Comments SODIUM (BEAKER) (test code = 381) 139 meq/L 136-145 POTASSIUM (BEAKER) (test code = 3.8 meq/L 3.5-5.1 379) CHLORIDE (BEAKER) (test code = 382) 109 meq/L 98-107 H CO2 (BEAKER) (test code = 355) 22 meq/L 22-29 URINALYSIS W/ [id number] 01:17:00 Test Item Value Reference Range Interpretation [...] 1584) SOURCE(BEAKER) (test code = Urine, Voided 6318) PROTHROMBIN [id number] 23:08:00 Test Item Value Reference Range Interpretation Comments PROTIME (BEAKER) (test code = 13.1 seconds 11.7-14.7 759) INR (BEAKER) (test code = 370) 1.0 <=5.9 RECOMMENDED COUMADIN/WARFARIN INR THERAPY RANGESSTANDARD DOSE: 2.0 - 3.0 Includes: PROPHYLAXIS forvenous thrombosis, systemic embolization; TREATMENT for venous thrombosis and/or pulmonary embolus.HIGH RISK: Target INR is 2.5-3.5 for patients with mechanical heart valves.RAD, CHEST, 1 VIEW, NON [id number] 21:49:00Post-intubationReason for exam:->coughShould this be performed at [...] Orellana MDReportVerified Date/Time: 03/03/2018 21:49:20 Reading Location: [address] Reading Room El ectronically signed by: KEESHA ORELLANA MD on 03/03/2018 09:49 PM
--- OUTSIDE RECORDS SUMMARY | 2020-03-03 16:49 | XMS REPORT | Continuity of Care Document ---
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/pharmacy #[id number] Levetiracetam 500 mg = 1 Inactive Mische r 500 MG Oral tab, PO, 019 Neuro Tablet [Keppra] BID, # 60 tab, 0 Refill(s) Naloxone Notes: Same No Longer [facility] as Narcan Active [address] [place] [address] Hydromorphone Notes: Same No Longer [place] as: Dilaudid Active [address] [place] [address] Ondansetron Notes: (Same No Longer [place] as: Zofran) Active [facility] MEDICATION WASTE Product Size: 4 mg Product Wasted: _0__ mg Promethazine Notes: Do No Longer [place] not give IV Active 015 Medical push. (Same Center as: Phenergan) Meperidine Notes: (Same No Longer [place] as: Demerol) Active 015 Medical "Use Center Precaution in Elderly, Seizure disorders, and Renal impairment&q uot; Flumazenil Notes: (Same No Longer [place] as: Active [address] [place] [address] Romazicon) Center Oxycodone Notes: (Same No Longer [place] Hydrochloride 1 as: Active 015 Medical MG/ML Oral 'Roxicodone) Center Solution tropicamide Notes: (Same Inactive [place] as ophthalmic As: 015 Medical Mydriacyl, Center Opticyl, Tropicacyl) phenylephrine 1 drp, Inactive [facility] ophthalmic 2.5% Route: LEFT 015 Medi nicolette solution EYE, ONCALL, Center Drug form: SOLN, Start date: 07/27/14 8:00:00, Duration: 1 day, Stop date: 07/28/14 7:59:00 Allergies, Adverse Reactions, Alerts Substance Category Reaction Severity Reaction Status Date Comments S ource type Reported Food Assertion Drug Active Tha as Shellfish allergy [facility] iodine Assertion Drug Active Mische r allergy [...] Date Comments Source Height 177.8 cm 02/14/2018 [facility] Weight 77.273 02/14/2018 [facility] BMI Calculated 24.44 02/14/2018 [facility] Respitory Rate 16 02/14/2018 [facility] Heart Rate 72 02/14/2018 [facility] Systolic (mm Hg) 96 02/14/2018 [facility] Diastolic (mm Hg) 57 02/14/2018 [facility] uro Systolic (mm Hg) 120 07/27/2014 [facility] dical Center Diastolic (mm Hg) 57 07/27/2014 [facility] edical Center Heart Rate 77 07/27/2014 [facility] Medica l Center Respitory Rate 15 07/27/2014 [facility] nicolette Center Respitory Rate 13 07/27/2014 [facility] nicolette Center Systolic (mm Hg) 130 07/27/2014 [facility] dical Center Diastolic (mm Hg) 65 07/27/2014 [facility] edical Center Systolic (mm Hg) 147 07/27/2014 [facility] dical Center Diastolic (mm Hg) 66 07/27/2014 [facility] edical Center Respitory Rate 13 07/27/2014 [facility] Heart Rate 58 07/27/2014 [facility] Weight 81.818 07/15/2014 [facility] BMI Calculated 25.16 07/15/2014 [facility] Height 180.34 cm 07/15/2014 [facility] Encounters Location Location Encounter Encounter Reason Attending ADM DC Stat us Source Details Type Number For Provider Date Date Visit [id number] Monica 07/27 07/28 [facility] Surgery Pramod /2014 [facility] Outpatient [id number] HAROON 02/14 [facility] Outpatient [id number] [place] 02/14 02/15 [facility] [place] Outpatient [id number] HAROON 02/18 [facility] Outpatient [id number] Har[place] 02/18 02/19 [facility] /2018 Neuro [place] Outpatient [id number] HAROON 04/01 [facility] Outpatient [id number] HAROON 07/03 [facility] Ambulatory [id number] Haroon 07/03 07/03 [facility] Pre-Reg [facility] /2018 Neuro [place] [facility] Outside [id number] 11/19 11/21 [facility] Neurology Medical /2018 Neuro [place] Records Procedures Procedure Code Date Perfomer Comments Source Eye operation [id number] [facility] Assessment and Plan Assessment and Plan Date Source Extracted from:Title: Vitreoretinal Surgery operative report 07/28/2014 [facility] Author: Monica Ortiz MD Date: 07/27/14 [...] Blood loss: minimal Surgeon: Monica Ortiz MD Concession Stand Attendant: Tri Murillo MD Indications and history: This [...] eye was prepped and draped in the [facility] sterile fashion for ophthalmic surgery. [...] were trimmed to the periphery. A max- environmental engineering manager forcep was used to peel membranes f [...] entered on: 04/01/18 Social History TypeResponse 07/15/2014 [facility] Smoking Status Former smoker; Type: Cigarettes; Exposur e to Tobacco Smoke None; Cigarette Smoking Last 365 Days No; Reg Smoking Cessation Counseling No1 1quit in 2013 Family History No Data Provided for This Section Advance Directives No Data Provided for This Section Functional Status No Data Provided for This Section
[2020-03-03] MEDS ORDERED: levETIRAcetam 1,000 MG in NA CHLORIDE 0.9% 100 ML IV ONE (17:15)
[2020-03-03] MEDS ORDERED: LORazepam 2 MG/ML VIAL ONE (17:20)
[2020-03-03 17:29] LABS: Absolute Lymphocytes (CBC) 1.8 K/uL (0.7-4.9); Basophils % 0.3 % (0-1.3); Hematocrit 47.8 % (39.6-49.0); Lymphocytes % 6.9 % (15.3-44.8); MPV 11.3 fL (7.6-11.3); RBC Red Blood Cell Count 5.06 M/uL (4.33-5.43)
[2020-03-03 17:48] LABS: ALT/SGPT 19 U/L (12-78); AST/SGOT 23 U/L (15-37); Albumin 4.8 g/dL (3.4-5.0); Alkaline Phosphatase 67 U/L (45-117); BUN Blood Urea Nitrogen 13 mg/dL (7-18); Bicarbonate 15 mmol/L (21-32); Bilirubin Direct < 0.1 mg/dL (0-0.2); Bilirubin Total 0.4 mg/dL (0.2-1.0); Glucose Level 143 mg/dL (74-106); Potassium 3.6 mmol/L (3.5-5.1); Protein, Total 8.2 g/dL (6.4-8.2); Sodium Level 146 mmol/L (136-145)
[2020-03-03 17:49] LABS: Protime INR 0.94
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
[2020-03-03 18:24] VITALS: TEMP 97.8
[2020-03-03 18:25] VITALS: BP 108/49; O2SAT 97
[2020-03-03 21:16] LABS: Platelet Estimate ADEQ
[2020-03-03 21:17] LABS: Blood Morphology Comment NOT SEEN (NOT SEEN)
== END 2020-03-03 18:20 | disposition home or self-care (01) ==
LOC: ER 16:46
DX: G40.802 Other epilepsy, not intractable, without status epilepticus (principal); Z88.6 Allergy status to analgesic agent; Z91.013 Allergy to seafood; Z91.048 Other nonmedicinal substance allergy status
CPT/HCPCS: 36415; 80048; 80076; 80320; 85025; 85610; 85730; 96365; 96375; 99284; J1953

== ENCOUNTER 2020-08-03 15:00 | Emergency (ER) | payer SELFPAY ==
--- OUTSIDE RECORDS SUMMARY | 2020-08-03 15:03 | XMS REPORT | Continuity of Care Document ---
:1980 Author Organization [facility] t Address [address] [place] [address] Care Team Providers Name Role Phone Chris Yanez Attending Clinician LYN JOSEPH Attending Clinician Unavail able Angel Attending Clinician LYN JOSEPH Admitting Clinician Unavail able Angel Admitting Clinician Problems Condition Condition Condition Status Onset Resolution Last Treating Co mments Source Name Details Category Date Date Treatment Clinician Date Status Status Disease Active [facility]-04 Fatimah vasquezs - s s 00:00: Medical 00 [place] Acute Acute Disease Active [facility] encephal[facility] encephalop 03-04 Fatimah vasquezs - athy athy 00:00: Medical 00 [place] Seizure Seizure Disease Active [facility] 00 [place] COMPLEX Diagnosis Active 2014-09-14 Me moria RETINAL 05-06 07:57:00 l DETACHMENT COMPLEX 00:00: Her fuentes RETINAL 00 DETACHMENT Active 05/06/2014 [facility] Retinal Problem Active 2014-07-30 Joseph logan detachment 00:34:47 l (disorder) 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 07/30/2014 [facility] 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 logan 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) epileptic seizure (disorder) Active Problem 11/23/2018 [facility] Headache Problem Active 2018-11-23 Mem oria (finding) 00:22:41 l Headache Krishan n (finding) Active Problem 11/23/2018 [facility] DETACHMNT Diagnosis Active 2014-09-14 Memoria W DEFECT 07:57:00 l NOS Roddy DETACHMNT W DEFECT NOS Active [facility] Allergies, Adverse Reactions, Alerts Allergy Allergy Status Severity Reaction(s) Onset Inactive Treating Comm ents Source Name Type Date Date Clinician Iodine Propensi Active [facility]ness [facility] Breath[facility] - Iodide adverse Swelling 00:00: Medical Containi reaction 00 Center ng s Products Food Food Active Memoria Shellfis Shellfis l h h Roddy iodine iodine Active Memoria l Roddy Social History Social Habit Start Date Stop Date Quantity Comments Source History of tobacco 2018-03-[address] [facility] - use 00:00:00 day smoker [facility] elaina History [facility] 2018-03-04 2018-03-[address] [facility] - Alcohol Frequency 00:00:00 00:00:00 Medical Center History [facility] 2018-03-04 2018-03-[address] [facility] - Alcohol Std Drinks 00:00:00 00:00:00 Medica l Center History [facility] 2018-03-04 2018-03-[address] [facility] - Alcohol Binge 00:00:00 00:00:[address] Cigarettes smoked 2018-03-04 2018-03-[address] [facility] - current (pack per 00:00:00 00:00:00 Medical Center day) - Reported Tobacco use and 2018-03-04 2018-03-[address] [facility] Fatimah kes - exposure 00:00:00 00:00:00 Medical Center Alcohol intake 2018-03-04 2018-03-04 [facility]00 [facility] alcohol [facility] (finding) Smoking Status Start Date Stop Date Source Social History 2018-04-01 19:26:54 Pacheco fuentes Social History 2014-07-15 18:42:09 2014-07-15 18:42:09 [facility] Medications Ordered Filled Start Stop Current Ordering Indication Dosage Frequency Signature Comments Components Source Medication Medication Date Date Medication? Clinician (SIG) Name Name Levetiracet No 500 mg = 1 Memoria am 500 MG 1-04 tab, PO, l Oral Tablet 20:26: BID, # 60 H ermann [Keppra] 00 tab, 3 Refill(s), Pharmacy: [id number] Levetiracet No 500 mg = 1 Memoria am 500 MG 1-04 tab, PO, l Oral Tablet 20:05: BID, # 60 H ermann [Keppra] 00 tab, 0 Refill(s) Naloxone No Notes: Memoria -16 Same as l 17:30: Narcan Hydromorpho No Notes: Joseph logan ne 07-27 Same as: l 17:30: Dilaudid Ondansetron No Notes: Joseph logan 07-27 (Same as: l 17:30: Zofran) MEDICATION WASTE Product Size: 4 mg Product Wasted: _0__ mg Promethazin No Notes: Do M emoria e 07-27 not give l 17:30: IV push. (Same as: Phenergan) Meperidine No Notes: Memor ia 16 (Same as: l 17:30: Demerol) "Use Precaution in Elderly, Seizure disorders, and Renal impairment " Flumazenil No Notes: Memor ia 16 (Same as: l 17:30: Romazicon) Oxycodone No Notes: Memori a Hydrochlori 07-27 (Same as: l de 1 MG/ML 17:30: 'Roxicodon H ermann Oral 00 e) Solution tropicamide No Notes: Joseph logan ophthalmic 16 (Same As: l 13:00: Mydriacyl, Roddy 00 [...] cm [facility] Weight 2018-02-14 20:01:00 [facility] BMI Calculated 2018-02-14 20:01:00 [facility] al [facility]dy Respitory Rate 2018-02-14 20:01:00 Memori al [place] Heart Rate 2018-02-14 20:01:00 [facility] [place] Systolic (mm Hg) 2018-02-14 20:01:00 Joseph rial [place] Diastolic (mm Hg) 2018-02-14 20:01:00 Mem orial [place] Systolic (mm Hg) 2014-07-27 18:35:00 Joseph rial [place] Diastolic (mm Hg) 2014-07-27 18:35:00 Mem orial Roddy Heart Rate 2014-07-27 18:35:00 [facility] Respitory Rate 2014-07-27 18:35:00 Memori al [place] Respitory Rate 2014-07-27 18:15:00 Memori al [place] Systolic (mm Hg) 2014-07-27 18:15:00 Joseph rial Roddy Diastolic (mm Hg) 2014-07-27 18:15:00 Mem orial Roddy Systolic (mm Hg) 2014-07-27 18:00:00 Joseph rial [place] Diastolic (mm Hg) 2014-07-27 18:00:00 Mem orial Roddy Respitory Rate 2014-07-27 18:00:00 Memori al [place] Heart Rate 2014-07-27 12:13:00 [facility] [place] Weight 2014-07-15 18:40:00 [facility] BMI Calculated 2014-07-15 18:40:00 Memori al [place] Height 2014-07-15 18:40:00 180.34 cm [facility] Procedures Procedure Date / Time Performed Performing Clinician [facility] e Eye operation [facility] Plan of Care Planned Activity Planned Date Details Comments Source Future Scheduled 2020-11-11 IMM Influenza Seasonal [facility] 00:00:00 Nov to April (>/= 19 yrs) [code = IMM Influenza Seasonal Nov to April (>/= 19 yrs)] Future Scheduled 2020-10-[address] [facility] - Test 00:00:00 (Season Ended) [code = Medic al Center INFLUENZA VACCINE (Season Ended)] Future Scheduled 2020-02-[address] [facility] - Test 00:00:00 (12+) [code = Medical Center DEPRESSION SCREENING (12+)] Future Scheduled 2016-02-[address] [facility] Test 00:00:00 (procedure) [code = Medical Center [id number]] Future Scheduled 2000-02-16 DTAP/TDAP/TD VACCINES [facility] Test 00:00:00 (1 - Tdap) [code = Medical C enter DTAP/TDAP/TD VACCINES (1 - Tdap)] Future Scheduled 1999 HEPATITIS C [facility]CRE[facility]ING [facility] Test 00:00:00 [code = HEPATITIS C Medical Center SCREENING] Future Scheduled 1993 COVID-19 Vaccine (1) [facility] 00:00:00 [code = COVID-19 Vaccine (1)] Future Scheduled 1993 COVID-19 VACCINE (1) [facility] - Test 00:00:00 [code = COVID-[address] VACCINE (1)] Future Scheduled [address] [facility] - Test 00:00:00 0-64 YRS (1 of 1 - Medical C enter PPSV23) [code = PNEUMOCOCCAL VACCINE 0-64 YRS (1 of 1 - PPSV23)] Encounters Start End Encounter Admission Attending Care Care Encounter Source Date/Time Date/Time Type Type Clinicians Facility Department ID 2018-11-19 2018-11-20 [id number] 17:00:05 23:59:59 00 2018-07-03 2018-07-03 Outpatient MADELYN YanezSCHKIM JOSHISCHER [id number] 13:15:00 13:15:00 Per Chris 2018-02-18 2018-02-18 Outpatient MADELYN YanezSCHKIM JOSHISCHER [id number] 15:00:00 23:59:59 Per Chris 2018-02-14 2018-02-14 [facility] [id number] 14:00:00 23:59:59 Per 00 Chris 2014-07-27 2014-07-27 Wilman Pramodtorreykeyanna [facility] [id number] 06:30:00 23:59:00 Monica 00 Results Test Description Test Time Test Comments Results Result Comments Source (CELLAVISION MANUAL DIFF) 2018-03-04 12:29:00 Test Item Value Reference Range Interpretation Comme nts NEUTROPHILS - REL (CELLAVISION)(BEAKER) (test code = 2816) 78 % LYMPHOCYTES - REL (CELLAVISION)(BEAKER) (test code = 2817) 9 % MONOCYTES - REL (CELLAVISION)(BEAKER) (test code = 2818) 12 % BANDS - REL (CELLAVISION)(BEAKER) (test code = 2826) 1 % 0 -10 NEUTROPHILS - ABS (CELLAVISION)(BEAKER) (test code = 2830) 12.40 K/ul 1.78-5.38 H LYMPHOCYTES - ABS (CELLAVISION)(BEAKER) (test code = 2831) 1.43 K/u l 1.32-3.57 MONOCYTES - ABS (CELLAVISION)(BEAKER) (test code = 2832) 1.91 K/uL 0.30-0.82 H BANDS - ABS (CELLAVISION)(BEAKER) (test code = 2840) 0.16 K/uL 0 .00-0.80 TOTAL COUNTED (BEAKER) (test code = 1351) 100 WBC MORPHOLOGY (BEAKER) (test code = 487) Normal PLT MORPHOLOGY (BEAKER) (test code = 486) Normal POLYCHROMATOPHILLIC RBCS(BEAKER) (test code = 478) 1+ few ANISOCYTOSIS (BEAKER) (test code = 961) 1+ few ARTIFACT (CELLAVISION)(BEAKER) (test code = 3432) Present PLATELET CONCENTRATION (CELLAVISION)(BEAKER) (test code = Adequate 3438) Received comment: User comments: Slide comments:CBC W/PLT COUNT & AUTO [id number] 12:29:00 Test Item Value Reference Range Interpretation Comments WHITE BLOOD CELL COUNT (BEAKER) 15.9 K/ L 3.5-10.5 H (test code = 775) RED BLOOD CELL COUNT (BEAKER) 4.25 M/ L 4.63-6.08 L (test code = 761) HEMOGLOBIN (BEAKER) (test code = 13.3 GM/DL 13.7-17.5 L 410) HEMATOCRIT (BEAKER) (test code = 39.1 % 40.1-51.0 L 411) MEAN CORPUSCULAR VOLUME (BEAKER) 92.0 fL 79.0-92.2 (test code = 753) MEAN CORPUSCULAR HEMOGLOBIN 31.3 pg 25.7-32.2 (BEAKER) (test code = 751) MEAN CORPUSCULAR HEMOGLOBIN CONC 34.0 GM/DL 32.3-36.5 (BEAKER) (test code = 752) RED CELL DISTRIBUTION WIDTH 14.1 % 11.6-14.4 (BEAKER) (test code = 412) PLATELET COUNT (BEAKER) (test 176 K/CU MM 150-450 code = 756) MEAN PLATELET VOLUME (BEAKER) 11.7 fL 9.4-12.4 (test code = 754) NUCLEATED RED BLOOD CELLS 0 /100 WBC 0-0 (BEAKER) (test code = 413) CREATININE, RANDOM [id number] 11:40:00 Test Item Value Reference Range Interpretation Comments CREATININE URINE (BEAKER) (test 81.7 mg/dL code = 375) Reference Range: No NormalsSODIUM, RANDOM [id number] 11:40:00 Test Item Value Reference Range Interpretation Comments SODIUM URINE (BEAKER) (test code = 39 meq/L 243) Reference Range: No NormalsCOMPREHENSIVE METABOLIC [id number] 07:31:00 Test Item Value Reference Range Interpretation [...] S NOT APPLICABLE FOR DIALYSIS PATIEN TS. [id number] 06:17:00 Test Item Value Reference Range Interpretation Comments SODIUM (BEAKER) (test code = 381) 139 meq/L 136-145 POTASSIUM (BEAKER) (test code = 3.8 meq/L 3.5-5.1 379) CHLORIDE (BEAKER) (test code = 382) 109 meq/L 98-107 H CO2 (BEAKER) (test code = 355) 22 meq/L 22-29 URINALYSIS W/ [id number] 01:17:00 Test Item Value Reference Range Interpretation [...] 1584) SOURCE(BEAKER) (test code = Urine, Voided 1075) PROTHROMBIN TIME/[id number] 23:08:00 Test Item Value Reference Range Interpretation Comments PROTIME (BEAKER) (test code = 13.1 seconds 11.7-14.7 759) INR (BEAKER) (test code = 370) 1.0 <=5.9 RECOMMENDED COUMADIN/WARFARIN INR THERAPY RANGESSTANDARD DOSE: 2.0 - 3.0 Includes: PROPHYLAXIS forvenous thrombosis, systemic embolization; TREATMENT for venous thrombosis and/or pulmonary embolus.HIGH RISK: Target INR is 2.5-3.5 for patients with mechanical heart valves.RAD, CHEST, 1 VIEW, NON [id number] 21:49:00Post-intubationReason for exam:->coughShould this be performed at [...] Orellana MDReportVerified Date/Time: 03/03/2018 21:49:20 Reading Location: [address] Reading Room El ectronically signed by: KEESHA ORELLANA MD on 03/03/2018 09:49 PM
[2020-08-03 15:29] LABS: Basophils % 0.9 % (0-1.3); Hematocrit 46.8 % (39.6-49.0); Lymphocytes % 8.6 % (15.3-44.8); MPV 10.4 fL (7.6-11.3)
[2020-08-03] MEDS ORDERED: LORazepam 2 MG/ML VIAL ONE (15:34)
[2020-08-03] MEDS ORDERED: Ringers Lactate 1,000 ML IV ONE ×2 (15:41→22:40)
[2020-08-03 15:58] LABS: Protime INR 0.91
[2020-08-03 16:09] LABS: Blood Morphology Comment NOT SEEN (NOT SEEN); Platelet Estimate ADEQ
[2020-08-03 16:10] LABS: ALT/SGPT 29 U/L (12-78); Albumin 4.5 g/dL (3.4-5.0); Alkaline Phosphatase 76 U/L (45-117); BUN Blood Urea Nitrogen 16 mg/dL (7-18); Bicarbonate 15 mmol/L (21-32); Bilirubin Direct < 0.1 mg/dL (0-0.2); Bilirubin Total 0.4 mg/dL (0.2-1.0); Glucose Level 115 mg/dL (74-106); Protein, Total 7.9 g/dL (6.4-8.2); Sodium Level 148 mmol/L (136-145)
[2020-08-03 16:11] LABS: AST/SGOT 34 U/L (15-37)
[2020-08-04 00:10] LABS: Hematocrit 41.7 % (39.6-49.0); MPV 10.9 fL (7.6-11.3); RBC Red Blood Cell Count 4.58 M/uL (4.33-5.43)
[2020-08-04 01:21] LABS: Potassium 4.2 mmol/L (3.5-5.1)
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
[2020-08-04 03:02] VITALS: TEMP 97.8
[2020-08-04 03:07] VITALS: BP 101/59; O2SAT 99
--- NOTE | 2020-08-04 10:34 | EKG ---
Test Date: 2020-08-03 Test Time: 15:25:01 Hosiery Repairer: HB MEASUREMENT RESULTS: Intervals: Rate: 98 RI: 116 QRSD: 96 QT: 370 QTc: 472 [place]: P: 77 RI: 116 QRS: 67 T: 44 INTERPRETIVE STATEMENTS: Normal sinus rhythm Normal ECG Compared to ECG 01/11/2020 03:51:20 Sinus tachycardia no longer present Left posterior fascicular block no longer present Electronically Signed On 08-04-20 10:31:50 CDT by Anuj Lawrence
== END 2020-08-04 02:54 | disposition home or self-care (01) ==
LOC: ER 15:00
DX: G40.802 Other epilepsy, not intractable, without status epilepticus (principal); Z88.6 Allergy status to analgesic agent; Z91.013 Allergy to seafood; Z91.048 Other nonmedicinal substance allergy status
CPT/HCPCS: 36415; 80048; 80076; 80320; 80329; 85025; 85027; 85610; 85730; 93005; J7120

== ENCOUNTER 2021-02-17 05:51 | Emergency (ER) | payer SELFPAY ==
--- OUTSIDE RECORDS SUMMARY | 2021-02-17 05:52 | XMS REPORT | Continuity of Care Document ---
:1980 Author Organization [facility] t Address [address] [place] [address] [place] [id number] Care Team Providers Name Role Phone LYN JOSEPH Attending Clinician Unavail able LYN JOSEPH Admitting Clinician Unavail able Problems This patient has no known problems. Allergies, Adverse Reactions, Alerts This patient has no known allergies or adverse reactions. Medications This patient has no known medications. Procedures This patient has no known procedures. Results Test Description Test Time Test Comments [...] PLATELET CONCENTRATION (CELLAVISION)(BEAKER) (test code = Adequate 3436) Received comment: User comments: Slide comments:CBC W/PLT COUNT & AUTO [id number] 12:29:00 Test Item Value Reference Range Interpretation [...] (BEAKER) (test code = 413) CREATININE, RANDOM [id number] 11:40:00 Test Item Value Reference Range Interpretation Comments CREATININE URINE (BEAKER) (test 81.7 mg/dL code = 375) Reference Range: No NormalsSODIUM, RANDOM [id number] 11:40:00 Test Item Value Reference Range Interpretation Comments SODIUM URINE (BEAKER) (test code = 39 meq/L 243) Reference Range: No NormalsCOMPREHENSIVE METABOLIC [id number] 07:31:00 Test Item Value Reference Range Interpretation [...] S NOT APPLICABLE FOR DIALYSIS PATIEN TS. [id number] 06:17:00 Test Item Value Reference Range Interpretation Comments SODIUM (BEAKER) (test code = 381) 139 meq/L 136-145 POTASSIUM (BEAKER) (test code = 3.8 meq/L 3.5-5.1 379) CHLORIDE (BEAKER) (test code = 382) 109 meq/L 98-107 H CO2 (BEAKER) (test code = 355) 22 meq/L 22-29 URINALYSIS W/ [id number] 01:17:00 Test Item Value Reference Range Interpretation [...] (test code = Urine, Voided 2795) PROTHROMBIN [id number] 23:08:00 Test Item Value Reference Range Interpretation Comments PROTIME (BEAKER) (test code = 13.1 seconds 11.7-14.7 759) INR (BEAKER) (test code = 370) 1.0 <=5.9 RECOMMENDED COUMADIN/WARFARIN INR THERAPY RANGESSTANDARD DOSE: 2.0 - 3.0 Includes: PROPHYLAXIS forvenous thrombosis, systemic embolization; TREATMENT for venous thrombosis and/or pulmonary embolus.HIGH RISK: Target INR is 2.5-3.5 for patients with mechanical heart valves.RAD, CHEST, 1 VIEW, NON [id number] 21:49:00Post-intubationReason for exam:->coughShould this be performed at [...] Orellana MDReportVerified Date/Time: 03/03/2018 21:49:20 Reading Location: [address] [place] signed by: EDEL ORELLANA MD on 03/03/2018 09:49 PM
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
[2021-02-17 07:33] VITALS: TEMP 98.4
[2021-02-17 07:35] VITALS: BP 114/65; O2SAT 96
== END 2021-02-17 07:27 | disposition home or self-care (01) ==
LOC: ER 05:51
DX: G40.509 Epileptic seizures related to external causes, not intractable, without status epilepticus (principal); Z91.013 Allergy to seafood
CPT/HCPCS: 99283

== ENCOUNTER 2024-11-04 17:26 | Emergency (ER) | payer OTHER, SELFPAY ==
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
[2024-11-04] MEDS ORDERED: HYDROCODONE/APAP 7.5/325 MG TAB ONE (21:08)
[2024-11-04] MEDS ORDERED: TDAP (DIPHTH,PERTUSS(ACELL),TET VAC) 0.5 ML VIAL IMVAC ONE (21:09)
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
[2024-11-04] MEDS ORDERED: KETOROLAC 30 MG/ML INJ ONE (21:39)
[2024-11-04 22:37] VITALS: TEMP 97
[2024-11-04 22:38] VITALS: BP 122/82; O2SAT 99
== END 2024-11-04 21:54 | disposition home or self-care (01) ==
LOC: ER 17:26
DX: S22.42XA Multiple fractures of ribs, left side, initial encounter for closed fracture (principal); S50.812A Abrasion of left forearm, initial encounter; S50.811A Abrasion of right forearm, initial encounter; W05.2XXA Fall from non-moving motorized mobility scooter, initial encounter
CPT/HCPCS: 90715; 96372; 99284; J1885